=== PATIENT | male | born 1945 | race Caucasian/White ===

== ENCOUNTER 2018-10-26 13:44 | Inpatient (IN) | payer OTHER, MEDICARE, SELFPAY ==
[2018-10-26] VITALS (23 sets, daily range): BP systolic 67–154; BP diastolic 32–118; PULSE 100–128; RESP 18–26; TEMP 37.1–38.2; O2SAT 92–100; BMI 31.8; BMI 35.3
--- NOTE | 2018-10-26 13:55 | EKG12_ITS ---
Test Reason : LETHARGIC Blood Pressure : / mmHG Vent. Rate : 122 BPM Atrial Rate : 120 BPM P-R Int : 000 ms QRS Dur : 096 ms QT Int : 326 ms P-R-T Axes : 000 034 000 degrees QTc Int : 464 ms Atrial fibrillation with rapid ventricular response Nonspecific ST abnormality Abnormal ECG Confirmed by HANNA WHEAT, YOANNA ([id number]), brands editor CATRINA BRITO ([id number]) on 10/30/2018 10:46:05 AM Referred By: CHIDI Confirmed By:YOANNA FERREIRA MD
--- NOTE | 2018-10-26 13:55 | RAD_ITS ---
STUDY: X-RAY CHEST REASON FOR EXAM: Male, 73 years old. Cough. TECHNIQUE: Single AP portable view of the chest. COMPARISON: None. FINDINGS: EKG electrodes are seen. The lungs are clear and expanded. There is no demonstrated pleural abnormality. Normal size heart. There is widening of the paratracheal space laterally. Adenopathy should be ruled out. Normal visualized pulmonary arteries. There is atherosclerotic tortuosity of the aortic arch and descending thoracic aorta. There are diffuse degenerative changes of the visualized thoracic spine. There is degenerative osteoarthritis of the bilateral shoulders. There is no demonstrated abnormality of the visualized soft tissue structures of the upper abdomen. RAD/Chest 1 View (Portable) IMPRESSION: Widening of the superior mediastinum. Electronically Signed: Augusto Youngblood, at 15:00 EDT , Service support ,
[2018-10-26] MEDS: Acetaminophen 500 MG Tablet 1000 MG PO (14:29)
[2018-10-26 14:37] LABS: Absolute Lymphocyte Count 1.91 X10^3/ul (0.83-4.51); Absolute Neutrophil Count 4.3 X10^3/uL (2.0-7.7); Basophil# 0.03 X10^3/uL; Basophil% 0.4 % (0-1); Eosinophil# 0.01 X10^3/uL; Eosinophils% 0.1 % (0-5); Hematocrit 43.2 % (40-54); Hemoglobin 15.1 g/dl (13.0-16.5); Lymphocyte # 1.91 X10^3/ul (4.0); Lymphocyte % 27.8 % (19-41); Mean Corpuscular Hgb 30.7 pg (27.0-32.0); Mean Corpuscular Volume 87.8 fL (80-94); Mean Platelet Vol. 10.7 fl (6.2-12.0); Monocyte# 0.62 X10^3/uL; Neutrophil # 4.28 X10^3/uL (2.7-7.7); Neutrophil % 62.4 % (47-70); POSITIVE COUNT NO; POSITIVE DIFFERENTIAL NO; POSITIVE MORPHOLOGY NO; Platelet Count 199 K/mm3 (150-450); RBC Distribution Width CV 13.5 % (11.6-14.6); RBC Distribution Width SD 42.5 fl (35.1-43.9); Red Blood Count 4.92 M/mm3 (4.6-6.2); White Blood Count 6.9 K/mm3 (4.4-11.0)
[2018-10-26] MEDS: 0.9% Normal Saline 1,000 ML 999 ML IV ×4 (14:41→18:10)
--- NOTE | 2018-10-26 14:49 | NURSING ---
PER ADELA, CHEMISTRIES AND COAGS HEMOLIZED
[2018-10-26 15:11] LABS: Lactic Acid 1.9 mmol/L (0.4-2.0)
[2018-10-26 15:25] LABS: ALB/GLOB Ratio 1.1 RATIO (0.9-2.4); AST(SGOT) 76 U/L (15-37); Alanine Aminotransfer ALT/SGPT 27 U/L (16-61); Albumin, Serum 4.1 g/dL (3.2-5.0); Alkaline Phosphatase 65 U/L (45-117); Anion Gap 10 (5-15); BUN 32 mg/dL (7-18); Calcium,Total 8.2 mg/dL (8.5-10.1); Chloride 101 mmol/L (98-107); Creatinine, Serum 2.46 mg/dL (0.70-1.30); EST Glomerular Filtration Rate 28 mL/min (>60); Est Glom Filt Rate - Afr Amer 34 mL/min (>60); Estimated Creatinine Clearance 30.23 ml/min; Globulin 3.7 g/dL (2.2-4.2); Glucose 73 mg/dL (74-106); Potassium 4.8 mmol/L (3.5-5.1); Protein, Total 7.8 g/dL (6.4-8.2); Sodium Level 133 mmol/L (136-145)
[2018-10-26 15:42] LABS: Bacteria 0 SEEN /hpf (None Seen); Red Blood Cells-Urine 0 SEEN /hpf (0-5)
[2018-10-26 15:56] LABS: Color, Urine Yellow (Yellow); Glucose, Dipstick Normal (Normal); Ketone-Dipstick 5 mg/dl (Negative); Leukocyte Esterase-Dipstick 25 /ul (Negative); Nitrite-Dipstick Negative (Negative); Occult Blood-Urine 10 /ul (Negative); Protein-Dipstick 30 mg/dl (Negative); Specific Gravity, Urine 1.025 (1.002-1.030); Urine Clarity Clear (Clear); Urine Urobilinogen 1 mg/dl (Normal)
[2018-10-26 16:02] LABS: Urine Bilirubin Dipstick 1 mg/dL (Negative)
[2018-10-26 16:04] LABS: International Normalized Ratio 1.5; Prothrombin Time (Protime)PT. 17.7 SECONDS (11.7-14.9)
[2018-10-26 16:05] LABS: Partial Thromboplast Time 43.5 Seconds (24.1-36.2)
[2018-10-26] MEDS: Ondansetron 4 MG/2 ML Vial IV (16:05)
[2018-10-26 16:06] LABS: Amorphous Sediment 1+; Mucous, Urine 1+ /hpf (<or=2+); Squamous Epithelial Cells - UA 0-5 SEEN /hpf (0-5); White Blood Cells 0-5 SEEN /hpf (0-5)
--- NOTE | 2018-10-26 16:17 | NURSING ---
CALLED RICK FISHER. TALKED TO UGO. HE WILL GIVE MESSAGE TO A BED COORDINATOR.
--- NOTE | 2018-10-26 16:40 | ED.VISSUMM ---
- ER Visit Summary Date of Service: 10/26/18 Chief Complaint: Fever History of Present Illness: The patient is a 73 M who presents with a fever. He states it started yesterday. He states he feels weak all over. He admits to a cough. He did not get a flu shot this year. He denies any dysuria or abdominal pain. He states his only medical history is a brain tumor. However family states he is on multiple other medications at home. Physical Examination: Vital signs reviewed. HEENT exam unremarkable. Heart is irregularly irregular and tachycardic with no murmurs. Lungs are clear bilaterally. Abdomen soft and nontender. Extremities reveal a right AKA. His neurologic exam is normal. He answers all questions appropriately. Test Results: EKG is atrial fibrillation with a rate of 122. Nonspecific ST and T wave changes noted. White blood cell count normal. BUN 32, creatinine 2.46. Total bilirubin 2.10. Urinalysis has trace leukocytes but no WBCs. Lactate 1.9. Chest x-ray reveals a widened mediastinum but there are no infiltrates. Emergency Department Course and Treatment: Patient has new onset atrial fibrillation with acute kidney injury. He also has a temperature of 103 ?F. He was medicated with Tylenol and IV fluids. I held metoprolol because he did have a slightly low blood pressure, but his mean arterial pressure is above 65. I sent off a respiratory panel because his influenza was negative. We will hold antibiotics as this is likely viral. Patient will be admitted to the hospital for further evaluation. Treatment Plan: [] Disposition: Admit Impression: Sepsis, acute kidney injury, new onset atrial fibrillation This note was generated with [employer] dictation software. It may contain incorrect words, spelling, and punctuation that were not noted in review of the chart prior to signing ED Disposition - Plan for ED Patient: [facility] [Primary Care Provider] -
--- NOTE | 2018-10-26 16:42 | NURSING ---
ICU SEVERE SEPSIS, YUDI, NEW ONSET FRIDA DURÁN
--- NOTE | 2018-10-26 16:53 | PCM.HP.STD ---
<John Torres - Last Filed: 10/26/18 16:53> Problem List (1) Sepsis Status: Acute (2) Atrial fibrillation with RVR Status: Acute (3) Glucocorticoid deficiency Status: Acute (4) URI (upper respiratory infection) Status: Acute (5) YUDI (acute kidney injury) Status: Acute (6) HTN (hypertension) Status: Chronic (7) Hypothyroidism Status: Chronic History of Present Illness Date of Admission: 10/26/18 Chief Complaint: Cough The patient is a 73 year old M with pmhx of benign pituitary s/p gamma knife and on cabergoline, htn, hypothyroidism, on who presents to the ER with c/o worsening cough and other flulike symptoms. He was taking care of his sick grandson on Tuesday who was diagnosed with Croup and Strep pharyngitis, and his was also sick recently, and on tuesday he became ill. He denies fever or chills, tho he is running a fever here. He has a productive cough with copious mucus, he has sore throat when swallowing, and has become much weakner. He appears mildly confused and slow to respond in the ER. His BP is poor, after 2 liters at 82/64. He denies SOB. CXR does not show infiltrate. He does also complain of all over body ache and diarrhea. [] Past Medical History Past Medical History (Chronic Problems): Chronic Problems HTN (hypertension) (Chronic) Hypothyroidism (Chronic) Allergies No Known Allergies Allergy (Verified 09/17/13 14:19) Home Medications: Ambulatory Orders Medication Instructions Recorded Levothyroxine [Synthroid] 137 mcg PO DAILY 05/12/13 Cabergoline 0.5 mg PO MOWEFRSA 10/26/18 Calcium (Elemental) [Os-Mariano 500] 1 gm PO DAILY 10/26/18 Hydrocortisone 5 mg PO UD 10/26/18 Multivit-Min/FA/Lycopen/Lutein 1 tab PO DAILY 10/26/18 [Centrum Silver Men Tablet] Testosterone [Androgel] 2 pump TD DAILY 10/26/18 Surgical History: - - gamma knife Psychiatric History: No pertinent psych hx Lives: Spouse/ Significant Other Smoking Status: Former smoker Alcohol: None Drugs: None - *Family History Maternal History Items: Cancer - cervical Paternal History Items: No pertinent history Review of Systems Constitutional: Reports: Fever, Malaise, Weakness. Denies: Chills, Weight Change HEENT: Reports: Sore Throat. Denies: Head Aches, Sinus Congestion, Sinus Drainage Cardiovascular: Denies: Chest Pain, Palpitations Respiratory: Denies: Cough, Shortness of breath at rest, Sputum production Gastrointestinal: Denies: Abdominal Pain, Nausea, Vomiting Genitourinary: Denies: Dysuria Musculoskeletal: Denies: Joint Pain, Joint Tenderness Skin: Denies: Rash, Wounds Neurological: Denies: Numbness, Tingling, Focal weakness Psychiatric: Denies: Anxiety, Depression, Homicidal Ideations, Suicidal Ideations Hematologic/ Lymphatic: Denies: Easy Bruising, Easy Bleeding VTE Information - Inpt Only VTE Present on Admission: No VTE Mechan Device Prophylaxis: None VTE Pharm Prophylaxis ordered?: Yes Patient Problems: Active and Suspected Problems URI (upper respiratory infection) (Acute) Sepsis (Acute) Atrial fibrillation with RVR (Acute) YUDI (acute kidney injury) (Acute) Glucocorticoid deficiency (Acute) SIRS (systemic inflammatory response syndrome) (Acute) - Physical Exam General: Alert, Oriented x3, Cooperative, - - restless in bed HEENT: Atraumatic, PERRLA, EOMI, Normocephalic Neck: Supple, No JVD, Negative Carotid Bruits Lungs: Wheezes Cardiovascular: No murmurs, Irregular Rate, Tachycardic Abdomen: Bowel Sounds Present, Soft, Non Tender Extremities: No edema, Capillary Refill Less than 3 Seconds Skin: No rashes, No breakdown Musculoskeletal: No Tenderness to Palpation of Joints or Extremities, - - Right leg partial amputation Neurological: Cranial nerves II-XII grossly intact Psych/Mental Status: Normal Affect, Appropriate Vital Signs Temp Pulse Resp BP Pulse Ox 100.8 F H 117 H 22 H 98/67 98 10/26/18 16:02 10/26/18 16:30 10/26/18 16:30 10/26/18 16:30 10/26/18 16:30 Oxygen Flow Rate (L/min) 2 Oxygen Delivery Method Nasal Cannula Weight: 235 lb Body Mass Index (BMI) 31.8 Microbiology Past 72 Hours 10/26/18 14:15 Influenza Types A,B Direct FA (CRESENCIO) - Final Mucosa - Nasopharyngeal Laboratory Tests Past 24 Hrs 10/26/18 10/26/18 10/26/18 13:35 14:20 14:20 WBC 6.9 RBC 4.92 Hgb 15.1 Hct 43.2 MCV 87.8 MCH 30.7 MCHC 35.0 RDW 13.5 RDW Differential 42.5 Plt Count 199 MPV 10.7 Immature Gran % (Auto) 0.300 Neut % (Auto) 62.4 Lymph % (Auto) 27.8 Harlan % (Auto) 9.0 Eos % (Auto) 0.1 Baso % (Auto) 0.4 Absolute Neuts (auto) 4.3 Absolute Lymphs (auto) 1.91 Total Counted Not Reportable PT Cancelled INR Cancelled APTT Cancelled Sodium Potassium Chloride Carbon Dioxide Anion Gap BUN Creatinine Estim Creat Clear Calc Est GFR (MDRD) Af Amer Est GFR (MDRD) Non-Af BUN/Creatinine Ratio Glucose Lactic Acid Calcium Total Bilirubin AST ALT Alkaline Phosphatase Total Protein Albumin Globulin Albumin/Globulin Ratio Urine Color Yellow Urine Clarity Clear Urine pH 5.0 Ur Specific [place] 1.025 Urine Protein 30 H Urine Glucose (UA) Normal Urine Ketones 5 H Urine Occult Blood 10 H Urine Nitrite Negative Urine Bilirubin 1 H Urine Urobilinogen 1 H Ur Leukocyte Esterase 25 H Urine RBC 0 SEEN Urine WBC 0-5 SEEN Ur Squamous Epith Cells 0-5 SEEN Amorphous Sediment 1+ Urine Bacteria 0 SEEN Urine Mucus 1+ 10/26/18 10/26/18 10/26/18 14:20 14:20 15:00 WBC RBC Hgb Hct MCV MCH MCHC RDW RDW Differential Plt Count MPV Immature Gran % (Auto) Neut % (Auto) Lymph % (Auto) Harlan % (Auto) Eos % (Auto) Baso % (Auto) Absolute Neuts (auto) Absolute Lymphs (auto) Total Counted PT INR APTT Sodium Cancelled 133 L Potassium Cancelled 4.8 Chloride Cancelled 101 Carbon Dioxide Cancelled 22.0 Anion Gap Cancelled 10 BUN Cancelled 32 H Creatinine Cancelled 2.46 H Estim Creat Clear Calc Cancelled 30.23 Est GFR (MDRD) Af Amer Cancelled 34 L Est GFR (MDRD) Non-Af Cancelled 28 L BUN/Creatinine Ratio Cancelled 13.0 Glucose Cancelled 73 L Lactic Acid 1.9 Calcium Cancelled 8.2 L Total Bilirubin Cancelled 2.10 H AST Cancelled 76 H ALT Cancelled 27 Alkaline Phosphatase Cancelled 65 Total Protein Cancelled 7.8 Albumin Cancelled 4.1 Globulin Cancelled 3.7 Albumin/Globulin Ratio Cancelled 1.1 Urine Color Urine Clarity Urine pH Ur Specific [place] Urine Protein Urine Glucose (UA) Urine Ketones Urine Occult Blood Urine Nitrite Urine Bilirubin Urine Urobilinogen Ur Leukocyte Esterase Urine RBC Urine WBC Ur Squamous Epith Cells Amorphous Sediment Urine Bacteria Urine Mucus 10/26/18 15:40 WBC RBC Hgb Hct MCV MCH MCHC RDW RDW Differential Plt Count MPV Immature Gran % (Auto) Neut % (Auto) Lymph % (Auto) Harlan % (Auto) Eos % (Auto) Baso % (Auto) Absolute Neuts (auto) Absolute Lymphs (auto) Total Counted PT 17.7 H INR 1.5 APTT 43.5 H Sodium Potassium Chloride Carbon Dioxide Anion Gap BUN Creatinine Estim Creat Clear Calc Est GFR (MDRD) Af Amer Est GFR (MDRD) Non-Af BUN/Creatinine Ratio Glucose Lactic Acid Calcium Total Bilirubin AST ALT Alkaline Phosphatase Total Protein Albumin Globulin Albumin/Globulin Ratio Urine Color Urine Clarity Urine pH Ur Specific [place] Urine Protein Urine Glucose (UA) Urine Ketones Urine Occult Blood Urine Nitrite Urine Bilirubin Urine Urobilinogen Ur Leukocyte Esterase Urine RBC Urine WBC Ur Squamous Epith Cells Amorphous Sediment Urine Bacteria Urine Mucus Assessment/Plan All Active Problems URI (upper respiratory infection) (Acute) Sepsis (Acute) Atrial fibrillation with RVR (Acute) YUDI (acute kidney injury) (Acute) Glucocorticoid deficiency (Acute) SIRS (systemic inflammatory response syndrome) (Acute) Pituitary tumor (Acute) Headache (Acute) 1. SIRS, infectious source unclear, likely URI - symptoms include diarrhea, cough, sore throat, body aches, fever. Defer abx therapy. Supportive care for now. Received 2 units IV NaCl in ER. Flu screen neg. + sick grandson (croup, strep) and . No pharyngitis present on exam. Wide mediastinum on CXR - get CT chest. Possibly adrenal crisis. As per #4 stress dose steroids. 2. Afib RVR - start heparin, metoprolol. This is new onset. Echo in AM 3. YUDI - 2/2 sepsis - continue IV fluids. 4. Hypotension suspect 2/2 glucocorticoid deficiency from underlying illness and hx pituitary removal - stress dose hydrocortisone 5. Pituitary adenoma s/p gamma knife - at home on daily hydrocortisone and cabergoline 6. Hypothyroidism - continued synthroid DVT ppx: therapeutic heparin DC planning: PTOT, he appears somewhat confused in the ER and has progressive weakness at home This patient was seen by Jonh Torres PA-C under the supervision of Doctor Roverto. <Bertram Layne - Last Filed: 10/26/18 17:50> Problem List (1) SIRS (systemic inflammatory response syndrome) Status: Acute History of Present Illness Chief Complaint: cough The patient is a 73 year old M presents with cough. Symptoms began 2 days ago. Work up in the ED was unremarkable.[] Past Medical History Allergies No Known Allergies Allergy (Verified 09/17/13 14:19) Surgical History: - Psychiatric History: No pertinent psych hx Lives: Spouse/ Significant Other Smoking Status: Former smoker Alcohol: None Drugs: None - *Family History Maternal History Items: Cancer Paternal History Items: No pertinent history Review of Systems Constitutional: Reports: Fever, Malaise, Weakness. Denies: Chills, Weight Change HEENT: Reports: Sore Throat. Denies: Head Aches, Sinus Congestion, Sinus Drainage Cardiovascular: Denies: Chest Pain, Palpitations Respiratory: Denies: Cough, Shortness of breath at rest, Sputum production Gastrointestinal: Denies: Abdominal Pain, Nausea, Vomiting Genitourinary: Denies: Dysuria Musculoskeletal: Denies: Joint Pain, Joint Tenderness Skin: Denies: Rash, Wounds Neurological: Denies: Focal weakness, Numbness, Tingling Psychiatric: Denies: Anxiety, Depression, Homicidal Ideations, Suicidal Ideations Hematologic/ Lymphatic: Denies: Easy Bruising, Easy Bleeding VTE Information - Inpt Only VTE Present on Admission: No VTE Mechan Device Prophylaxis: None VTE Pharm Prophylaxis ordered?: Yes - Physical Exam General: Alert, Cooperative, - HEENT: Atraumatic, Normocephalic Oral: Moist Mucosa, No Gingival or Mucosal Lesions/ Ulcerations Neck: No Nodes, Thyroid Normal Size and Texture Lungs: Wheezes Cardiovascular: No murmurs, Irregular Rate, Tachycardic Abdomen: Bowel Sounds Present, Soft, Non Tender Extremities: No edema, No Calf Tenderness Skin: No breakdown, - Musculoskeletal: - Neurological: Cranial nerves II-XII grossly intact, - - no clonus. Psych/Mental Status: Normal Affect, Appropriate Vital Signs Temp Pulse Resp BP Pulse Ox 37.1 C 104 H 18 89/50 L 99 10/26/18 17:34 10/26/18 17:34 10/26/18 17:34 10/26/18 17:34 10/26/18 17:34 Oxygen Flow Rate (L/min) 2 Oxygen Delivery Method Nasal Cannula Weight: 106.594 kg Body Mass Index (BMI) 31.8 Microbiology Past 72 Hours 10/26/18 14:15 Influenza Types A,B Direct FA (CRESENCIO) - Final Mucosa - Nasopharyngeal Laboratory Tests Past 24 Hrs 10/26/18 10/26/18 10/26/18 13:35 14:20 14:20 WBC 6.9 RBC 4.92 Hgb 15.1 Hct 43.2 MCV 87.8 MCH 30.7 MCHC 35.0 RDW 13.5 RDW Differential 42.5 Plt Count 199 MPV 10.7 Immature Gran % (Auto) 0.300 Neut % (Auto) 62.4 Lymph % (Auto) 27.8 Harlan % (Auto) 9.0 Eos % (Auto) 0.1 Baso % (Auto) 0.4 Absolute Neuts (auto) 4.3 Absolute Lymphs (auto) 1.91 Total Counted Not Reportable PT Cancelled INR Cancelled APTT Cancelled Sodium Potassium Chloride Carbon Dioxide Anion Gap BUN Creatinine Estim Creat Clear Calc Est GFR (MDRD) Af Amer Est GFR (MDRD) Non-Af BUN/Creatinine Ratio Glucose Lactic Acid Calcium Total Bilirubin AST ALT Alkaline Phosphatase Total Protein Albumin Globulin Albumin/Globulin Ratio Urine Color Yellow Urine Clarity Clear Urine pH 5.0 Ur Specific [place] 1.025 Urine Protein 30 H Urine Glucose (UA) Normal Urine Ketones 5 H Urine Occult Blood 10 H Urine Nitrite Negative Urine Bilirubin 1 H Urine Urobilinogen 1 H Ur Leukocyte Esterase 25 H Urine RBC 0 SEEN Urine WBC 0-5 SEEN Ur Squamous Epith Cells 0-5 SEEN Amorphous Sediment 1+ Urine Bacteria 0 SEEN Urine Mucus 1+ 10/26/18 10/26/18 10/26/18 14:20 14:20 15:00 WBC RBC Hgb Hct MCV MCH MCHC RDW RDW Differential Plt Count MPV Immature Gran % (Auto) Neut % (Auto) Lymph % (Auto) Har[place] % (Auto) Eos % (Auto) Baso % (Auto) Absolute Neuts (auto) Absolute Lymphs (auto) Total Counted PT INR APTT Sodium Cancelled 133 L Potassium Cancelled 4.8 Chloride Cancelled 101 Carbon Dioxide Cancelled 22.0 Anion Gap Cancelled 10 BUN Cancelled 32 H Creatinine Cancelled 2.46 H Estim Creat Clear Calc Cancelled 30.23 Est GFR (MDRD) Af Amer Cancelled 34 L Est GFR (MDRD) Non-Af Cancelled 28 L BUN/Creatinine Ratio Cancelled 13.0 Glucose Cancelled 73 L Lactic Acid 1.9 Calcium Cancelled 8.2 L Total Bilirubin Cancelled 2.10 H AST Cancelled 76 H ALT Cancelled 27 Alkaline Phosphatase Cancelled 65 Total Protein Cancelled 7.8 Albumin Cancelled 4.1 Globulin Cancelled 3.7 Albumin/Globulin Ratio Cancelled 1.1 Urine Color Urine Clarity Urine pH Ur Specific [place] Urine Protein Urine Glucose (UA) Urine Ketones Urine Occult Blood Urine Nitrite Urine Bilirubin Urine Urobilinogen Ur Leukocyte Esterase Urine RBC Urine WBC Ur Squamous Epith Cells Amorphous Sediment Urine Bacteria Urine Mucus 10/26/18 15:40 WBC RBC Hgb Hct MCV MCH MCHC RDW RDW Differential Plt Count MPV Immature Gran % (Auto) Neut % (Auto) Lymph % (Auto) Harlan % (Auto) Eos % (Auto) Baso % (Auto) Absolute Neuts (auto) Absolute Lymphs (auto) Total Counted PT 17.7 H INR 1.5 APTT 43.5 H Sodium Potassium Chloride Carbon Dioxide Anion Gap BUN Creatinine Estim Creat Clear Calc Est GFR (MDRD) Af Amer Est GFR (MDRD) Non-Af BUN/Creatinine Ratio Glucose Lactic Acid Calcium Total Bilirubin AST ALT Alkaline Phosphatase Total Protein Albumin Globulin Albumin/Globulin Ratio Urine Color Urine Clarity Urine pH Ur Specific [place] Urine Protein Urine Glucose (UA) Urine Ketones Urine Occult Blood Urine Nitrite Urine Bilirubin Urine Urobilinogen Ur Leukocyte Esterase Urine RBC Urine WBC Ur Squamous Epith Cells Amorphous Sediment Urine Bacteria Urine Mucus Clinical Impression(s) from Imaging Studies Chest X-Ray 10/26/18 13:55 IMPRESSION: Widening of the superior mediastinum. Electronically Signed: Augusto Youngblood, at 15:00 EDT , Service support , Assessment/Plan Patient seen and examined independently. Data reviewed. I agree with the above note by the physician assistant commissioner. 1. SIRS: URI v adrenal crisis supportive mgmt follow up resp panel stress dose steroids. 2. YUDI suspect prerenal IVF reevaluate 3. Afib w RVR acute due to stress or chronic with RVR due to physiologic duress. 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 will likely need taper down to his physiologic dosing continue cabergoline and levothyroxine 5. VTE proph: anticoagulated. Code Visit Inpatient E&M: 62732 Init Hosp L3
--- NOTE | 2018-10-26 16:55 | NURSING ---
110 DR CAPONE IN ROOM
--- NOTE | 2018-10-26 16:57 | HP.PCM_ITS ---
<John Torres - Last Filed: 10/26/18 16:53> Problem List (1) Sepsis Status: Acute (2) Atrial fibrillation with RVR Status: Acute (3) Glucocorticoid deficiency Status: Acute (4) URI (upper respiratory infection) Status: Acute (5) YUDI (acute kidney injury) Status: Acute (6) HTN (hypertension) Status: Chronic (7) Hypothyroidism Status: Chronic History of Present Illness Date of Admission: 10/26/18 Chief Complaint: Cough The patient is a 73 year old M with pmhx of benign pituitary s/p gamma knife and on cabergoline, htn, hypothyroidism, on who presents to the ER with c/o wors ening cough and other flulike symptoms. He was taking care of his sick grandson on Tuesday who was diagnosed with Croup and Strep pharyngitis, and his was also sick recently, and on tuesday he became ill. He denies fever or chills, tho he is running a fever here. He has a productive cough with copious mucus, he has sore throat when swallowing, and has become much weakner. He appears mildly con fused and slow to respond in the ER. His BP is poor, after 2 liters at 82/64. He denies SOB. CXR does not show infiltrate. He does also complain of all over body ache and diarrhea. [] Past Medical History Past Medical History (Chronic Problems): Chronic Problems HTN (hypertension) (Chronic) Hypothyroidism (Chronic) Allergies No Known Allergies Allergy (Verified 09/17/13 14:19) Home Medications: Ambulatory Orders Medication Instructions Recorded Levothyroxine [Synthroid] 137 mcg PO DAILY 05/12/13 Cabergoline 0.5 mg PO MOWEFRSA 10/26/18 Calcium (Elemental) [Os-Mariano 500] 1 gm PO DAILY 10/26/18 Hydrocortisone 5 mg PO UD 10/26/18 Multivit-Min/FA/Lycopen/Lutein 1 tab PO DAILY 10/26/18 [Centrum Silver Men Tablet] Testosterone [Androgel] 2 pump TD DAILY 10/26/18 Surgical History: - - gamma knife Psychiatric History: No pertinent psych hx Lives: Spouse/ Significant Other Smoking Status: Former smoker Alcohol: None Drugs: None - *Family History Maternal History Items: Cancer - cervical Paternal History Items: No pertinent history Review of Systems Constitutional: Reports: Fever, Malaise, Weakness. Denies: Chills, Weight Change HEENT: Reports: Sore Throat. Denies: Head Aches, Sinus Congestion, Sinus Drainage Cardiovascular: Denies: Chest Pain, Palpitations Respiratory: Denies: Cough, Shortness of breath at rest, Sputum production Gastrointestinal: Denies: Abdominal Pain, Nausea, Vomiting Genitourinary: Denies: Dysuria Musculoskeletal: Denies: Joint Pain, Joint Tenderness Skin: Denies: Rash, Wounds Neurological: Denies: Numbness, Tingling, Focal weakness Psychiatric: Denies: Anxiety, Depression, Homicidal Ideations, Suicidal Ideations Hematologic/ Lymphatic: Denies: Easy Bruising, Easy Bleeding VTE Information - Inpt Only VTE Present on Admission: No VTE Mechan Device Prophylaxis: None VTE Pharm Prophylaxis ordered?: Yes Patient Problems: Active and Suspected Problems URI (upper respiratory infection) (Acute) Sepsis (Acute) Atrial fibrillation with RVR (Acute) YUDI (acute kidney injury) (Acute) Glucocorticoid deficiency (Acute) SIRS (systemic inflammatory response syndrome) (Acute) - Physical Exam General: Alert, Oriented x3, Cooperative, - - restless in bed HEENT: Atraumatic, PERRLA, EOMI, Normocephalic Neck: Supple, No JVD, Negative Carotid Bruits Lungs: Wheezes Cardiovascular: No murmurs, Irregular Rate, Tachycardic Abdomen: Bowel Sounds Present, Soft, Non Tender Extremities: No edema, Capillary Refill Less than 3 Seconds Skin: No rashes, No breakdown Musculoskeletal: No Tenderness to Palpation of Joints or Extremities, - - Right leg partial amputation Neurological: Cranial nerves II-XII grossly intact Psych/Mental Status: Normal Affect, Appropriate Vital Signs Temp Pulse Resp BP Pulse Ox 100.8 F H 117 H 22 H 98/67 98 10/26/18 16:02 10/26/18 16:30 10/26/18 16:30 10/26/18 16:30 10/26/18 16:30 Oxygen Flow Rate (L/min) 2 Oxygen Delivery Method Nasal Cannula Weight: 235 lb Body Mass Index (BMI) 31.8 Microbiology Past 72 Hours 10/26/18 14:15 Influenza Types A,B Direct FA (CRESENCIO) - Final Mucosa - Nasopharyngeal Laboratory Tests Past 24 Hrs 10/26/18 10/26/18 10/26/18 13:35 14:20 14:20 WBC 6.9 RBC 4.92 Hgb 15.1 Hct 43.2 MCV 87.8 MCH 30.7 MCHC 35.0 RDW 13.5 RDW Differential 42.5 Plt Count 199 MPV 10.7 Immature Gran % (Auto) 0.300 Neut % (Auto) 62.4 Lymph % (Auto) 27.8 Clayton % (Auto) 9.0 Eos % (Auto) 0.1 Baso % (Auto) 0.4 Absolute Neuts (auto) 4.3 Absolute Lymphs (auto) 1.91 Total Counted Not Reportable PT Cancelled INR Cancelled APTT Cancelled Sodium Potassium Chloride Carbon Dioxide Anion Gap BUN Creatinine Estim Creat Clear Calc Est GFR (MDRD) Af Amer Est GFR (MDRD) Non-Af BUN/Creatinine Ratio Glucose Lactic Acid Calcium Total Bilirubin AST ALT Alkaline Phosphatase Total Protein Albumin Globulin Albumin/Globulin Ratio Urine Color Yellow Urine Clarity Clear Urine pH 5.0 Ur Specific Fontanelle 1.025 Urine Protein 30 H Urine Glucose (UA) Normal Urine Ketones 5 H Urine Occult Blood 10 H Urine Nitrite Negative Urine Bilirubin 1 H Urine Urobilinogen 1 H Ur Leukocyte Esterase 25 H Urine RBC 0 SEEN Urine WBC 0-5 SEEN Ur Squamous Epith Cells 0-5 SEEN Amorphous Sediment 1+ Urine Bacteria 0 SEEN Urine Mucus 1+ 10/26/18 10/26/18 10/26/18 14:20 14:20 15:00 WBC RBC Hgb Hct MCV MCH MCHC RDW RDW Differential Plt Count MPV Immature Gran % (Auto) Neut % (Auto) Lymph % (Auto) Clayton % (Auto) Eos % (Auto) Baso % (Auto) Absolute Neuts (auto) Absolute Lymphs (auto) Total Counted PT INR APTT Sodium Cancelled 133 L Potassium Cancelled 4.8 Chloride Cancelled 101 Carbon Dioxide Cancelled 22.0 Anion Gap Cancelled 10 BUN Cancelled 32 H Creatinine Cancelled 2.46 H Estim Creat Clear Calc Cancelled 30.23 Est GFR (MDRD) Af Amer Cancelled 34 L Est GFR (MDRD) Non-Af Cancelled 28 L BUN/Creatinine Ratio Cancelled 13.0 Glucose Cancelled 73 L Lactic Acid 1.9 Calcium Cancelled 8.2 L Total Bilirubin Cancelled 2.10 H AST Cancelled 76 H ALT Cancelled 27 Alkaline Phosphatase Cancelled 65 Total Protein Cancelled 7.8 Albumin Cancelled 4.1 Globulin Cancelled 3.7 Albumin/Globulin Ratio Cancelled 1.1 Urine Color Urine Clarity Urine pH Ur Specific Fontanelle Urine Protein Urine Glucose (UA) Urine Ketones Urine Occult Blood Urine Nitrite Urine Bilirubin Urine Urobilinogen Ur Leukocyte Esterase Urine RBC Urine WBC Ur Squamous Epith Cells Amorphous Sediment Urine Bacteria Urine Mucus 10/26/18 15:40 WBC RBC Hgb Hct MCV MCH MCHC RDW RDW Differential Plt Count MPV Immature Gran % (Auto) Neut % (Auto) Lymph % (Auto) Clayton % (Auto) Eos % (Auto) Baso % (Auto) Absolute Neuts (auto) Absolute Lymphs (auto) Total Counted PT 17.7 H INR 1.5 APTT 43.5 H Sodium Potassium Chloride Carbon Dioxide Anion Gap BUN Creatinine Estim Creat Clear Calc Est GFR (MDRD) Af Amer Est GFR (MDRD) Non-Af BUN/Creatinine Ratio Glucose Lactic Acid Calcium Total Bilirubin AST ALT Alkaline Phosphatase Total Protein Albumin Globulin Albumin/Globulin Ratio Urine Color Urine Clarity Urine pH Ur Specific Fontanelle Urine Protein Urine Glucose (UA) Urine Ketones Urine Occult Blood Urine Nitrite Urine Bilirubin Urine Urobilinogen Ur Leukocyte Esterase Urine RBC Urine WBC Ur Squamous Epith Cells Amorphous Sediment Urine Bacteria Urine Mucus Assessment/Plan All Active Problems URI (upper respiratory infection) (Acute) Sepsis (Acute) Atrial fibrillation with RVR (Acute) YUDI (acute kidney injury) (Acute) Glucocorticoid deficiency (Acute) SIRS (systemic inflammatory response syndrome) (Acute) Pituitary tumor (Acute) Headache (Acute) 1. SIRS, infectious source unclear, likely URI - symptoms include diarrhea, cough, sore throat, body aches, fever. Defer abx therapy. Supportive care for now. Received 2 units IV NaCl in ER. Flu screen neg. + sick grandson (croup, strep) and . No pharyngitis present on exam. Wide mediastinum on CXR - get C T chest. Possibly adrenal crisis. As per #4 stress dose steroids. 2. Afib RVR - start heparin, metoprolol. This is new onset. Echo in AM 3. YUDI - 2/2 sepsis - continue IV fluids. 4. Hypotension suspect 2/2 glucocorticoid deficiency from underlying illness and hx pituitary removal - stress dose hydrocortisone 5. Pituitary adenoma s/p gamma knife - at home on daily hydrocortisone and cabergoline 6. Hypothyroidism - continued synthroid DVT ppx: therapeutic heparin DC planning: PTOT, he appears somewhat confused in the ER and has progressive weakness at home This patient was seen by John Torres PA-C under the supervision of Doctor Roverto. <Bertram Layne - Last Filed: 10/26/18 17:50> Problem List (1) SIRS (systemic inflammatory response syndrome) Status: Acute History of Present Illness Chief Complaint: cough The patient is a 73 year old M presents with cough. Symptoms began 2 days ago. Work up in the ED was unremarkable.[] Past Medical History Allergies No Known Allergies Allergy (Verified 09/17/13 14:19) Surgical History: - Psychiatric History: No pertinent psych hx Lives: Spouse/ Significant Other Smoking Status: Former smoker Alcohol: None Drugs: None - *Family History Maternal History Items: Cancer Paternal History Items: No pertinent history Review of Systems Constitutional: Reports: Fever, Malaise, Weakness. Denies: Chills, Weight Change HEENT: Reports: Sore Throat. Denies: Head Aches, Sinus Congestion, Sinus Drainage Cardiovascular: Denies: Chest Pain, Palpitations Respiratory: Denies: Cough, Shortness of breath at rest, Sputum production Gastrointestinal: Denies: Abdominal Pain, Nausea, Vomiting Genitourinary: Denies: Dysuria Musculoskeletal: Denies: Joint Pain, Joint Tenderness Skin: Denies: Rash, Wounds Neurological: Denies: Focal weakness, Numbness, Tingling Psychiatric: Denies: Anxiety, Depression, Homicidal Ideations, Suicidal Ideations Hematologic/ Lymphatic: Denies: Easy Bruising, Easy Bleeding VTE Information - Inpt Only VTE Present on Admission: No VTE Mechan Device Prophylaxis: None VTE Pharm Prophylaxis ordered?: Yes - Physical Exam General: Alert, Cooperative, - HEENT: Atraumatic, Normocephalic Oral: Moist Mucosa, No Gingival or Mucosal Lesions/ Ulcerations Neck: No Nodes, Thyroid Normal Size and Texture Lungs: Wheezes Cardiovascular: No murmurs, Irregular Rate, Tachycardic Abdomen: Bowel Sounds Present, Soft, Non Tender Extremities: No edema, No Calf Tenderness Skin: No breakdown, - Musculoskeletal: - Neurological: Cranial nerves II-XII grossly intact, - - no clonus. Psych/Mental Status: Normal Affect, Appropriate Vital Signs Temp Pulse Resp BP Pulse Ox 37.1 C 104 H 18 89/50 L 99 04/04/19 17:34 10/26/18 17:34 10/26/18 17:34 10/26/18 17:34 10/26/18 17:34 Oxygen Flow Rate (L/min) 2 Oxygen Delivery Method Nasal Cannula Weight: 106.594 kg Body Mass Index (BMI) 31.8 Microbiology Past 72 Hours 10/26/18 14:15 Influenza Types A,B Direct FA (CRESENCIO) - Final Mucosa - Nasopharyngeal Laboratory Tests Past 24 Hrs 10/26/18 10/26/18 10/26/18 13:35 14:20 14:20 WBC 6.9 RBC 4.92 Hgb 15.1 Hct 43.2 MCV 87.8 MCH 30.7 MCHC 35.0 RDW 13.5 RDW Differential 42.5 Plt Count 199 MPV 10.7 Immature Gran % (Auto) 0.300 Neut % (Auto) 62.4 Lymph % (Auto) 27.8 Clayton % (Auto) 9.0 Eos % (Auto) 0.1 Baso % (Auto) 0.4 Absolute Neuts (auto) 4.3 Absolute Lymphs (auto) 1.91 Total Counted Not Reportable PT Cancelled INR Cancelled APTT Cancelled Sodium Potassium Chloride Carbon Dioxide Anion Gap BUN Creatinine Estim Creat Clear Calc Est GFR (MDRD) Af Amer Est GFR (MDRD) Non-Af BUN/Creatinine Ratio Glucose Lactic Acid Calcium Total Bilirubin AST ALT Alkaline Phosphatase Total Protein Albumin Globulin Albumin/Globulin Ratio Urine Color Yellow Urine Clarity Clear Urine pH 5.0 Ur Specific Fontanelle 1.025 Urine Protein 30 H Urine Glucose (UA) Normal Urine Ketones 5 H Urine Occult Blood 10 H Urine Nitrite Negative Urine Bilirubin 1 H Urine Urobilinogen 1 H Ur Leukocyte Esterase 25 H Urine RBC 0 SEEN Urine WBC 0-5 SEEN Ur Squamous Epith Cells 0-5 SEEN Amorphous Sediment 1+ Urine Bacteria 0 SEEN Urine Mucus 1+ 10/26/18 10/26/18 10/26/18 14:20 14:20 15:00 WBC RBC Hgb Hct MCV MCH MCHC RDW RDW Differential Plt Count MPV Immature Gran % (Auto) Neut % (Auto) Lymph % (Auto) Clayton % (Auto) Eos % (Auto) Baso % (Auto) Absolute Neuts (auto) Absolute Lymphs (auto) Total Counted PT INR APTT Sodium Cancelled 133 L Potassium Cancelled 4.8 Chloride Cancelled 101 Carbon Dioxide Cancelled 22.0 Anion Gap Cancelled 10 BUN Cancelled 32 H Creatinine Cancelled 2.46 H Estim Creat Clear Calc Cancelled 30.23 Est GFR (MDRD) Af Amer Cancelled 34 L Est GFR (MDRD) Non-Af Cancelled 28 L BUN/Creatinine Ratio Cancelled 13.0 Glucose Cancelled 73 L Lactic Acid 1.9 Calcium Cancelled 8.2 L Total Bilirubin Cancelled 2.10 H AST Cancelled 76 H ALT Cancelled 27 Alkaline Phosphatase Cancelled 65 Total Protein Cancelled 7.8 Albumin Cancelled 4.1 Globulin Cancelled 3.7 Albumin/Globulin Ratio Cancelled 1.1 Urine Color Urine Clarity Urine pH Ur Specific Fontanelle Urine Protein Urine Glucose (UA) Urine Ketones Urine Occult Blood Urine Nitrite Urine Bilirubin Urine Urobilinogen Ur Leukocyte Esterase Urine RBC Urine WBC Ur Squamous Epith Cells Amorphous Sediment Urine Bacteria Urine Mucus 10/26/18 15:40 WBC RBC Hgb Hct MCV MCH MCHC RDW RDW Differential Plt Count MPV Immature Gran % (Auto) Neut % (Auto) Lymph % (Auto) Clayton % (Auto) Eos % (Auto) Baso % (Auto) Absolute Neuts (auto) Absolute Lymphs (auto) Total Counted PT 17.7 H INR 1.5 APTT 43.5 H Sodium Potassium Chloride Carbon Dioxide Anion Gap BUN Creatinine Estim Creat Clear Calc Est GFR (MDRD) Af Amer Est GFR (MDRD) Non-Af BUN/Creatinine Ratio Glucose Lactic Acid Calcium Total Bilirubin AST ALT Alkaline Phosphatase Total Protein Albumin Globulin Albumin/Globulin Ratio Urine Color Urine Clarity Urine pH Ur Specific Fontanelle Urine Protein Urine Glucose (UA) Urine Ketones Urine Occult Blood Urine Nitrite Urine Bilirubin Urine Urobilinogen Ur Leukocyte Esterase Urine RBC Urine WBC Ur Squamous Epith Cells Amorphous Sediment Urine Bacteria Urine Mucus Clinical Impression(s) from Imaging Studies Chest X-Ray 10/26/18 13:55 IMPRESSION: Widening of the superior mediastinum. Electronically Signed: Augusto Youngblood, at 15:00 EDT , Service support , Assessment/Plan Patient seen and examined independently. Data reviewed. I agree with the above note by the physician music library assistant. 1. SIRS: * URI v adrenal crisis * supportive mgmt * follow up resp panel * stress dose steroids. 2. YUDI * suspect prerenal * IVF * reevaluate 3. Afib w RVR * acute due to stress or chronic with RVR due to physiologic duress. 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 will likely need taper down to his physiologic dosing * continue cabergoline and levothyroxine 5. VTE proph: anticoagulated. Code Visit Inpatient E&M: 91264 Init Hosp L3
--- NOTE | 2018-10-26 17:12 | CT_ITS ---
STUDY: CT CHEST WITHOUT CONTRAST REASON FOR EXAM: Male, 73 years old. Productive cough RADIATION DOSAGE (If Supplied By Facility): CTDIvol = ( 20.15 ) mGy, DLP = ( 790.49 ) mGycm TECHNIQUE: Transaxial imaging was performed without the administration of intravenous contrast material. Individualized dose optimization techniques were used for this CT. COMPARISON: None. FINDINGS: The lungs are expanded. Focal right upper lobe infiltrate/atelectasis. Normal heart and pericardium. Adenopathy in the mediastinum. Normal hilar regions. Normal unenhanced pulmonary arteries. Prominent ascending aorta measuring 4.8 cm in diameter. Degenerative vertebral changes. Cholelithiasis. CT/Chest without Contrast IMPRESSION: Focal right upper lobe infiltrate/atelectasis. Mediastinal adenopathy. Dilated ascending aorta. Cholelithiasis. Electronically Signed: Rk Cárdenas DO at 21:55 EDT Tel [phone], Service support ,
--- NOTE | 2018-10-26 17:27 | ECHOCS_ITS ---
Reason For Study: AFIB Procedure This was a 2D Doppler, Color Flow transthoracic echocardiogram. Contrast injection was performed. The study was technically difficult. Exam performed portable in patient room. Left Ventricle Normal LV size. Left ventricular systolic function is normal. The estimated ejection fraction is 65 %. Unable to assess diastolic dysfunction due to arrhythmia. No regional wall motion abnormalities noted. Right Ventricle Mildly dilated right ventricle. Mild global right ventricular systolic dysfunction. Atria The left atrium is moderately enlarged. The right atrium is moderately enlarged. Mitral Valve Mitral valve not well visualized. Tricuspid Valve The tricuspid valve is not well visualized. Mild (1+) tricuspid valve insufficiency. Pulmonary artery systolic pressure is 33 mmHg. Aortic Valve The aortic valve is not well visualized. Mild (1+) eccentric aortic valve insufficiency. Pulmonic Valve The pulmonic valve is not well visualized. Great Vessels Mildly dilated aortic root. The pulmonary artery is normal size. Normal inferior vena cava. Pericardium/Pleural No pericardial effusion. Medication Diluted definity 3ml given slow IV push to enhance endocardial definition. MMode/2D Measurements & Calculations LVIDd: 4.4 cm IVSd: 0.73 cm LAV(MOD-bp): 106.2 ml LVIDs: 2.9 cm LVPWd: 1.1 cm RVDd: 4.6 cm FS: 33.4 % LAV(MOD-bp) Indexed: 44.6 ml/m2 LAV(MOD-sp2): 125.2 ml LAV(MOD-sp4): 93.0 ml SV(MOD-sp4): 73.3 ml SV(sp4-el): 79.2 ml LVAd ap4: 32.1 cm2 EDV(MOD-sp4): 101.7 ml EDV(sp4-el): 108.9 ml LVAs ap4: 14.6 cm2 ESV(MOD-sp4): 28.4 ml ESV(sp4-el): 29.6 ml EF(MOD-sp4): 72.1 % EF(sp4-el): 72.8 % LA dimension(2D): 4.9 cm LA A4 area: 29.9 cm2 RA A4 area: 28.6 cm2 Doppler Measurements & Calculations Ao V2 max: 112.6 cm/sec AI max flora: 384.8 cm/sec LV V1 max: 87.7 cm/sec Ao max P.1 mmHg AI max P.2 mmHg LV V1 max P.1 mmHg AI dec slope: 216.2 cm/sec2 AI P1/2t: 521.2 msec TR max flora: 258.9 cm/sec TR max P.0 mmHg Interpretation Summary Normal LV size. Left ventricular systolic function is normal. The estimated ejection fraction is 65 %. Unable to assess diastolic dysfunction due to arrhythmia. Contrast injection was performed. Ordering Physician: Bertram Layne Referring Physician: [facility] Performed By: Elis Whitehead, NOAH, RVT
[2018-10-26] MEDS: Hydrocortisone Sod Succinate 100 MG/2 ML Vial IV ×2 (18:06→23:53)
[2018-10-26] MEDS: 0.9% Normal Saline 1,000 ML 150 ML IV (19:07)
[2018-10-26] MEDS: HEPARIN/D5w 25,000 UNITS 25,000 UNITS/250 ML IV.SOLN. 16 UNITS IV (19:50)
[2018-10-27] VITALS (19 sets, daily range): BP systolic 102–146; BP diastolic 58–96; PULSE 77–104; RESP 11–21; TEMP 36.6–36.8; O2SAT 95–100
[2018-10-27] MEDS: Acetaminophen 325 MG Tablet 650 MG PO (02:04)
[2018-10-27 03:08] LABS: Partial Thromboplast Time 198.3 Seconds (24.1-36.2)
[2018-10-27 04:20] LABS: AST(SGOT) 74 U/L (15-37); Alanine Aminotransfer ALT/SGPT 28 U/L (16-61); Albumin, Serum 3.7 g/dL (3.2-5.0); Alkaline Phosphatase 57 U/L (45-117); Anion Gap 12 (5-15); BUN 26 mg/dL (7-18); Calcium,Total 7.5 mg/dL (8.5-10.1); Chloride 110 mmol/L (98-107); Estimated Creatinine Clearance 46.48 ml/min; Globulin 2.9 g/dL (2.2-4.2); Glucose 113 mg/dL (74-106); Potassium 4.6 mmol/L (3.5-5.1); Protein, Total 6.6 g/dL (6.4-8.2); Sodium Level 141 mmol/L (136-145)
[2018-10-27 04:21] LABS: Thyroid Stim Hormone (TSH) 0.04 uIU/mL (0.358-3.74)
[2018-10-27] MEDS: Hydrocortisone Sod Succinate 100 MG/2 ML Vial IV ×4 (05:08→23:47)
[2018-10-27] MEDS: Levothyroxine 137 MCG Tablet PO (05:17)
[2018-10-27 05:37] LABS: Absolute Lymphocyte Count 0.43 X10^3/ul (0.83-4.51); Absolute Neutrophil Count 2.9 X10^3/uL (2.0-7.7); Hematocrit 34.9 % (40-54); Hemoglobin 12.3 g/dl (13.0-16.5); Lymphocyte # 0.43 X10^3/ul (4.0); Lymphocyte % 12.8 % (19-41); Mean Corp Hgb Conc 35.2 g/gl (32-36); Mean Corpuscular Hgb 31.4 pg (27.0-32.0); Mean Platelet Vol. 10.6 fl (6.2-12.0); Monocyte# 0.06 X10^3/uL; Monocyte% 1.8 % (0-10); Neutrophil # 2.87 X10^3/uL (2.7-7.7); Neutrophil % 85.4 % (47-70); Platelet Count 134 K/mm3 (150-450); RBC Distribution Width CV 13.4 % (11.6-14.6); RBC Distribution Width SD 43.6 fl (35.1-43.9); Red Blood Count 3.92 M/mm3 (4.6-6.2); White Blood Count 3.4 K/mm3 (4.4-11.0)
[2018-10-27 05:43] LABS: Differential Indicated SCAN CRITERIA MET; POSITIVE COUNT NO; POSITIVE DIFFERENTIAL YES; POSITIVE MORPHOLOGY NO
[2018-10-27 05:53] LABS: Differential Comment SCANNED
[2018-10-27] MEDS: Multivitamins,Ther W-Minerals Tablet 1 TABLET PO (07:43)
[2018-10-27] MEDS: Calcium (Elemental) 500 MG Tablet 1000 MG PO (07:43)
[2018-10-27 09:25] LABS: Partial Thromboplast Time 105.7 Seconds (24.1-36.2)
[2018-10-27] MEDS: guaiFENesin 1,200 MG Tablet 1200 MG PO ×2 (09:26→21:59)
[2018-10-27] MEDS: Ceftriaxone 1 GM/50 ML BAG IV (09:26)
--- NOTE | 2018-10-27 09:45 | CASEMGMT ---
Clinicals faxed to [facility] at this time. Dilshad CLINTON CM
[2018-10-27 09:46] LABS: T4 Free Direct 1.49 ng/dL (0.76-1.46)
[2018-10-27] MEDS: CABERGOLINE 0.5 MG TABLET PO (09:55)
[2018-10-27] MEDS: Metoprolol Tartrate 25 MG Tablet 12.5 MG PO ×2 (09:56→21:59)
--- NOTE | 2018-10-27 10:40 | CASEMGMT ---
OZ DONG SUPERVISOR FRONT CM to room to meet with patient for initial transition planning/care coordination assessment. OZ DONG introduced self and role at [facility]. Pt voices understanding and consents to assessment at this time. Pt resting in bed in no distress at this time. Pt is A/O at this time and answers all questions appropriately. Care providers, pharmacy, and demographics verified/updated at this time. PCP: [facility]. Call placed to [facility] and message left stating pt admitted to [facility]. Pt is on PACT team # [address] Figueroa. Clinicals faxed to [facility]. Message also left stating pt will be going home on Eliquis and that pt will be given 30-day savings card and that pt has been instructed to follow-up with them after he is discharged from [facility] . Preferred Pharmacy: [facility], but states if he needs to order picker/assembler prescriptions over the weekend, that he can get them @ [facility] [place]. Pt made aware if meds on d/c are too expensive when he goes to pick them up, that he can just pay for a partial fill to get him through until he can get in for an appt @ the [facility]. Pt voices understanding. Insurance: [facility], [employer] benefits. Prescription Benefit: [facility] Living Will/HPOA: Pt states he thinks he has both LW and HCPOA, who is his , Kassandra, but he is not sure. Informed pt if he determines that he has not completed these, that he can have done as an out-pt. Given student services vice president rac card. He voices understanding. LNOK: Living Arrangements: Lives with his in one-story home. 2 steps to enter. Able to navigate well. Pt independent with personal ADL's and manages his own medications and appts. 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 Transportation: Pt states drives self and states no transportation concerns at this time. can drive on d/c. DME: States has the following DME: shower chair, uses cane on occasion, lift chair, grab bars in shower, hand held shower, walker, prosthetic leg. Denies having home O2, BIPAP/CPAP, or nebulizer. Pt states no need for further DME at this time. HHC/SNF: No history of either and pt denies needs. No needs identified. Pt wishes to return home and states has no concerns with going home at time of discharge. Pt states does not smoke or drink ETOH. CM to follow for any discharge planning/needs. Pt voices no further concerns/needs at this time. Advised pt to ask for CM if any further questions/concerns/needs arise. Voices understanding. PLAN: Home Discussed [facility] transfer form with pt. Pt states he does not want to transfer to [facility] and declination form signed. Form faxed to [facility]. Clint SMILEY RN CM
--- NOTE | 2018-10-27 11:46 | CPS ---
Pep and SMI placed in room at bedside. P.T and O.T with pt. will instruct pt later on use
--- NOTE | 2018-10-27 11:56 | CASEMGMT ---
Pt provided with [facility] [employer] 30 day free trial card with instructions at this time. Pt is aware that he will need to f/u at [facility] to get a new script for next month and voices understanding. Pt with family member at bedside and she voices understanding as well. Pt voices no further questions/concerns/needs at this time. Dilshad CLINTON CM
--- NOTE | 2018-10-27 12:54 | PN_ITS ---
Addendum entered and electronically signed by ASHER Dixon 10/27/18 14:45: Code Visit heparin changed to eliquis resp panel flu A +, start renal dosed tamiflu Original Note: <John Torres - Last Filed: 10/27/18 14:45> Patient Problems: Active and Suspected Problems URI (upper respiratory infection) (Acute) Sepsis (Acute) Atrial fibrillation with RVR (Acute) YUDI (acute kidney injury) (Acute) Glucocorticoid deficiency (Acute) SIRS (systemic inflammatory response syndrome) (Acute) Subjective: productive cough continues - mucus. Still c/o weakness, nausea. No further fever. No chills. No CP. He is off O2, no SOB, 100% RA. - Physical Exam General: Alert, Oriented x3, Cooperative HEENT: Atraumatic, PERRLA, EOMI, Normocephalic Neck: Supple, No JVD, Negative Carotid Bruits Lungs: Normal air movement, Rales Cardiovascular: Regular rate, No murmurs Abdomen: Bowel Sounds Present, Soft, Non Tender Extremities: No edema, Capillary Refill Less than 3 Seconds Skin: No rashes, No breakdown Musculoskeletal: No Tenderness to Palpation of Joints or Extremities Neurological: Cranial nerves II-XII grossly intact Psych/Mental Status: Normal Affect, Appropriate, Alert and oriented to time, place, person, mood and affect Vital Signs Temp Pulse Resp BP Pulse Ox 98.1 F 80 20 H 115/90 H 100 10/27/18 09:00 10/27/18 11:03 10/27/18 09:00 10/27/18 09:00 10/27/18 09:00 Oxygen Flow Rate (L/min) 2 Oxygen Delivery Method Room Air Weight: 260 lb 2.327 oz Body Mass Index (BMI) 3.2 Intake and Output for Last 24 Hours 10/25/18 10/26/18 10/27/18 23:59 23:59 23:59 Intake Total 4023.3 / 4023.3 Output Total 1550 / 1550 Balance 2473.3 / 2473.3 Microbiology Past 72 Hours 10/26/18 13:35 Urine Culture - Preliminary Urine, Clean Catch Culture exhibits no growth. 10/27/18 09:00 Streptococcus pneumoniae Antigen (M - Final Urine, Clean Catch 10/27/18 09:00 Legionella Antigen - Final Urine, Clean Catch 10/26/18 14:15 Influenza Types A,B Direct FA (CRESENCIO) - Final Mucosa - Nasopharyngeal Laboratory Tests Past 24 Hrs 10/26/18 10/26/18 10/26/18 13:35 14:20 14:20 WBC 6.9 RBC 4.92 Hgb 15.1 Hct 43.2 MCV 87.8 MCH 30.7 MCHC 35.0 RDW 13.5 RDW Differential 42.5 Plt Count 199 MPV 10.7 Immature Gran % (Auto) 0.300 Neut % (Auto) 62.4 Lymph % (Auto) 27.8 [place] % (Auto) 9.0 Eos % (Auto) 0.1 Baso % (Auto) 0.4 Absolute Neuts (auto) 4.3 Absolute Lymphs (auto) 1.91 Total Counted Not Reportable Differential Comment PT Cancelled INR Cancelled APTT Cancelled Sodium Potassium Chloride Carbon Dioxide Anion Gap BUN Creatinine Estim Creat Clear Calc Est GFR (MDRD) Af Amer Est GFR (MDRD) Non-Af BUN/Creatinine Ratio Glucose Lactic Acid Calcium Magnesium Total Bilirubin Direct Bilirubin AST ALT Alkaline Phosphatase Troponin I Total Protein Albumin Globulin Albumin/Globulin Ratio TSH Free T4 Urine Color Yellow Urine Clarity Clear Urine pH 5.0 Ur Specific [place] 1.025 Urine Protein 30 H Urine Glucose (UA) Normal Urine Ketones 5 H Urine Occult Blood 10 H Urine Nitrite Negative Urine Bilirubin 1 H Urine Urobilinogen 1 H Ur Leukocyte Esterase 25 H Urine RBC 0 SEEN Urine WBC 0-5 SEEN Ur Squamous Epith Cells 0-5 SEEN Amorphous Sediment 1+ Urine Bacteria 0 SEEN Urine Mucus 1+ 10/26/18 10/26/18 10/26/18 14:20 14:20 15:00 WBC RBC Hgb Hct MCV MCH MCHC RDW RDW Differential Plt Count MPV Immature Gran % (Auto) Neut % (Auto) Lymph % (Auto) [place] % (Auto) Eos % (Auto) Baso % (Auto) Absolute Neuts (auto) Absolute Lymphs (auto) Total Counted Differential Comment PT INR APTT Sodium Cancelled 133 L Potassium Cancelled 4.8 Chloride Cancelled 101 Carbon Dioxide Cancelled 22.0 Anion Gap Cancelled 10 BUN Cancelled 32 H Creatinine Cancelled 2.46 H Estim Creat Clear Calc Cancelled 30.23 Est GFR (MDRD) Af Amer Cancelled 34 L Est GFR (MDRD) Non-Af Cancelled 28 L BUN/Creatinine Ratio Cancelled 13.0 Glucose Cancelled 73 L Lactic Acid 1.9 Calcium Cancelled 8.2 L Magnesium Total Bilirubin Cancelled 2.10 H Direct Bilirubin AST Cancelled 76 H ALT Cancelled 27 Alkaline Phosphatase Cancelled 65 Troponin I Total Protein Cancelled 7.8 Albumin Cancelled 4.1 Globulin Cancelled 3.7 Albumin/Globulin Ratio Cancelled 1.1 TSH Free T4 Urine Color Urine Clarity Urine pH Ur Specific [place] Urine Protein Urine Glucose (UA) Urine Ketones Urine Occult Blood Urine Nitrite Urine Bilirubin Urine Urobilinogen Ur Leukocyte Esterase Urine RBC Urine WBC Ur Squamous Epith Cells Amorphous Sediment Urine Bacteria Urine Mucus 10/26/18 10/26/18 10/26/18 15:40 18:10 21:45 WBC RBC Hgb Hct MCV MCH MCHC RDW RDW Differential Plt Count MPV Immature Gran % (Auto) Neut % (Auto) Lymph % (Auto) [place] % (Auto) Eos % (Auto) Baso % (Auto) Absolute Neuts (auto) Absolute Lymphs (auto) Total Counted Differential Comment PT 17.7 H INR 1.5 APTT 43.5 H Sodium Potassium Chloride Carbon Dioxide Anion Gap BUN Creatinine Estim Creat Clear Calc Est GFR (MDRD) Af Amer Est GFR (MDRD) Non-Af BUN/Creatinine Ratio Glucose Lactic Acid Calcium Magnesium Total Bilirubin Direct Bilirubin AST ALT Alkaline Phosphatase Troponin I 0.046 H 0.034 Total Protein Albumin Globulin Albumin/Globulin Ratio TSH Free T4 Urine Color Urine Clarity Urine pH Ur Specific [place] Urine Protein Urine Glucose (UA) Urine Ketones Urine Occult Blood Urine Nitrite Urine Bilirubin Urine Urobilinogen Ur Leukocyte Esterase Urine RBC Urine WBC Ur Squamous Epith Cells Amorphous Sediment Urine Bacteria Urine Mucus 10/27/18 10/27/18 10/27/18 00:42 00:42 02:35 WBC RBC Hgb Hct MCV MCH MCHC RDW RDW Differential Plt Count MPV Immature Gran % (Auto) Neut % (Auto) Lymph % (Auto) [place] % (Auto) Eos % (Auto) Baso % (Auto) Absolute Neuts (auto) Absolute Lymphs (auto) Total Counted Differential Comment PT INR APTT Sodium 141 Potassium 4.6 Chloride 110 H Carbon Dioxide 19.0 L Anion Gap 12 BUN 26 H Creatinine 1.60 H Estim Creat Clear Calc 46.48 Est GFR (MDRD) Af Amer 56 L Est GFR (MDRD) Non-Af 46 L BUN/Creatinine Ratio 16.3 Glucose 113 H Lactic Acid Calcium 7.5 L Magnesium 2.0 Total Bilirubin 1.40 H Direct Bilirubin 0.50 H AST 74 H ALT 28 Alkaline Phosphatase 57 Troponin I 0.023 Total Protein 6.6 Albumin 3.7 Globulin 2.9 Albumin/Globulin Ratio TSH 0.04 L Free T4 1.49 H Urine Color Urine Clarity Urine pH Ur Specific [place] Urine Protein Urine Glucose (UA) Urine Ketones Urine Occult Blood Urine Nitrite Urine Bilirubin Urine Urobilinogen Ur Leukocyte Esterase Urine RBC Urine WBC Ur Squamous Epith Cells Amorphous Sediment Urine Bacteria Urine Mucus 10/27/18 10/27/18 10/27/18 02:35 04:54 08:58 WBC 3.4 L RBC 3.92 L Hgb 12.3 L Hct 34.9 L MCV 89.0 MCH 31.4 MCHC 35.2 RDW 13.4 RDW Differential 43.6 Plt Count 134 L MPV 10.6 Immature Gran % (Auto) 0.000 Neut % (Auto) 85.4 H Lymph % (Auto) 12.8 L [place] % (Auto) 1.8 Eos % (Auto) 0.0 Baso % (Auto) 0.0 Absolute Neuts (auto) 2.9 Absolute Lymphs (auto) 0.43 L Total Counted Not Reportable Differential Comment SCANNED PT INR APTT 198.3 H* 105.7 H* Sodium Potassium Chloride Carbon Dioxide Anion Gap BUN Creatinine Estim Creat Clear Calc Est GFR (MDRD) Af Amer Est GFR (MDRD) Non-Af BUN/Creatinine Ratio Glucose Lactic Acid Calcium Magnesium Total Bilirubin Direct Bilirubin AST ALT Alkaline Phosphatase Troponin I Total Protein Albumin Globulin Albumin/Globulin Ratio TSH Free T4 Urine Color Urine Clarity Urine pH Ur Specific [place] Urine Protein Urine Glucose (UA) Urine Ketones Urine Occult Blood Urine Nitrite Urine Bilirubin Urine Urobilinogen Ur Leukocyte Esterase Urine RBC Urine WBC Ur Squamous Epith Cells Amorphous Sediment Urine Bacteria Urine Mucus Medical Necessity - Tobacco Use Smoking Status: Former smoker Tobacco Use: Non-smoker Assessment/Plan All Active Problems URI (upper respiratory infection) (Acute) Sepsis (Acute) Atrial fibrillation with RVR (Acute) YUDI (acute kidney injury) (Acute) Glucocorticoid deficiency (Acute) SIRS (systemic inflammatory response syndrome) (Acute) Pituitary tumor (Acute) Headache (Acute) 1. Acute sepsis 2/2 RUL community acquired pna - RUL infiltrate, mediastinal adenopathy on CT. Continue rocephin and azithro, strep and legionella urine ag are negative. resp panel is pending. Flu screen neg. Blood cultures pending. 2. Adrenal crisis - precipitated by above - bp has stabilized with IV hydrocortisone. TSH is low but this is expected with no pituitary (s/p gamma knife) T4 is slightly high, hyponatremia has resolved. 3. Afib RVR - improved with metoprolol. New onset, likely from sepsis. Continue metoprolol. No amio for now. BP stable. Chadvasc score 2 (age, hx htn) - check eliquis rx. Continue heparin for now. Slight troponin bump initially now resolved. 4. YUDI - 2/2 sepsis - Improved. 5. HTN - pt took himself off of all his home BP meds several years prior because he felt that they were making him fatigued. 6. Pituitary adenoma s/p gamma knife - at home on daily hydrocortisone and cabergoline 7. Hypothyroidism - continued synthroid, thyroid studies as above. DVT ppx: therapeutic heparin DC planning: PTOT, weakness. This patient was seen by John Torres PA-C under the supervision of Doctor Sepideh <Vero Bunn - Last Filed: 10/27/18 16:03> - Physical Exam Vital Signs Temp Pulse Resp BP Pulse Ox 98.3 F 82 14 144/70 H 96 10/27/18 15:10 10/27/18 15:10 10/27/18 15:10 10/27/18 15:10 10/27/18 15:10 Oxygen Flow Rate (L/min) 2 Oxygen Delivery Method Room Air Weight: 260 lb 2.327 oz Body Mass Index (BMI) 3.2 Intake and Output for Last 24 Hours 10/25/18 10/26/18 10/27/18 23:59 23:59 23:59 Intake Total 4023.3 / 4023.3 Output Total 1550 / 1550 Balance 2473.3 / 2473.3 Microbiology Past 72 Hours 10/26/18 14:15 Respiratory Panel (PCR) - Final Mucosa - Nasopharyngeal Influenza A (Subtype H1) 10/26/18 13:35 Urine Culture - Preliminary Urine, Clean Catch Culture exhibits no growth. 10/27/18 09:00 Streptococcus pneumoniae Antigen (M - Final Urine, Clean Catch 10/27/18 09:00 Legionella Antigen - Final Urine, Clean Catch 10/26/18 14:15 Influenza Types A,B Direct FA (CRESENCIO) - Final Mucosa - Nasopharyngeal Laboratory Tests Past 24 Hrs 10/26/18 10/26/18 10/26/18 13:35 15:40 18:10 WBC RBC Hgb Hct MCV MCH MCHC RDW RDW Differential Plt Count MPV Immature Gran % (Auto) Neut % (Auto) Lymph % (Auto) [place] % (Auto) Eos % (Auto) Baso % (Auto) Absolute Neuts (auto) Absolute Lymphs (auto) Total Counted Differential Comment PT 17.7 H INR 1.5 APTT 43.5 H Sodium Potassium Chloride Carbon Dioxide Anion Gap BUN Creatinine Estim Creat Clear Calc Est GFR (MDRD) Af Amer Est GFR (MDRD) Non-Af BUN/Creatinine Ratio Glucose Calcium Magnesium Total Bilirubin Direct Bilirubin AST ALT Alkaline Phosphatase Troponin I 0.046 H Total Protein Albumin Globulin TSH Free T4 Urine Color Yellow Urine Clarity Clear Urine pH 5.0 Ur Specific [place] 1.025 Urine Protein 30 H Urine Glucose (UA) Normal Urine Ketones 5 H Urine Occult Blood 10 H Urine Nitrite Negative Urine Bilirubin 1 H Urine Urobilinogen 1 H Ur Leukocyte Esterase 25 H Urine RBC 0 SEEN Urine WBC 0-5 SEEN Ur Squamous Epith Cells 0-5 SEEN Amorphous Sediment 1+ Urine Bacteria 0 SEEN Urine Mucus 1+ 10/26/18 10/27/18 10/27/18 21:45 00:42 00:42 WBC RBC Hgb Hct MCV MCH MCHC RDW RDW Differential Plt Count MPV Immature Gran % (Auto) Neut % (Auto) Lymph % (Auto) [place] % (Auto) Eos % (Auto) Baso % (Auto) Absolute Neuts (auto) Absolute Lymphs (auto) Total Counted Differential Comment PT INR APTT Sodium Potassium Chloride Carbon Dioxide Anion Gap BUN Creatinine Estim Creat Clear Calc Est GFR (MDRD) Af Amer Est GFR (MDRD) Non-Af BUN/Creatinine Ratio Glucose Calcium Magnesium 2.0 Total Bilirubin Direct Bilirubin AST ALT Alkaline Phosphatase Troponin I 0.034 0.023 Total Protein Albumin Globulin TSH Free T4 1.49 H Urine Color Urine Clarity Urine pH Ur Specific [place] Urine Protein Urine Glucose (UA) Urine Ketones Urine Occult Blood Urine Nitrite Urine Bilirubin Urine Urobilinogen Ur Leukocyte Esterase Urine RBC Urine WBC Ur Squamous Epith Cells Amorphous Sediment Urine Bacteria Urine Mucus 10/27/18 10/27/18 10/27/18 02:35 02:35 04:54 WBC 3.4 L RBC 3.92 L Hgb 12.3 L Hct 34.9 L MCV 89.0 MCH 31.4 MCHC 35.2 RDW 13.4 RDW Differential 43.6 Plt Count 134 L MPV 10.6 Immature Gran % (Auto) 0.000 Neut % (Auto) 85.4 H Lymph % (Auto) 12.8 L [place] % (Auto) 1.8 Eos % (Auto) 0.0 Baso % (Auto) 0.0 Absolute Neuts (auto) 2.9 Absolute Lymphs (auto) 0.43 L Total Counted Not Reportable Differential Comment SCANNED PT INR APTT 198.3 H* Sodium 141 Potassium 4.6 Chloride 110 H Carbon Dioxide 19.0 L Anion Gap 12 BUN 26 H Creatinine 1.60 H Estim Creat Clear Calc 46.48 Est GFR (MDRD) Af Amer 56 L Est GFR (MDRD) Non-Af 46 L BUN/Creatinine Ratio 16.3 Glucose 113 H Calcium 7.5 L Magnesium Total Bilirubin 1.40 H Direct Bilirubin 0.50 H AST 74 H ALT 28 Alkaline Phosphatase 57 Troponin I Total Protein 6.6 Albumin 3.7 Globulin 2.9 TSH 0.04 L Free T4 Urine Color Urine Clarity Urine pH Ur Specific [place] Urine Protein Urine Glucose (UA) Urine Ketones Urine Occult Blood Urine Nitrite Urine Bilirubin Urine Urobilinogen Ur Leukocyte Esterase Urine RBC Urine WBC Ur Squamous Epith Cells Amorphous Sediment Urine Bacteria Urine Mucus 10/27/18 08:58 WBC RBC Hgb Hct MCV MCH MCHC RDW RDW Differential Plt Count MPV Immature Gran % (Auto) Neut % (Auto) Lymph % (Auto) [place] % (Auto) Eos % (Auto) Baso % (Auto) Absolute Neuts (auto) Absolute Lymphs (auto) Total Counted Differential Comment PT INR APTT 105.7 H* Sodium Potassium Chloride Carbon Dioxide Anion Gap BUN Creatinine Estim Creat Clear Calc Est GFR (MDRD) Af Amer Est GFR (MDRD) Non-Af BUN/Creatinine Ratio Glucose Calcium Magnesium Total Bilirubin Direct Bilirubin AST ALT Alkaline Phosphatase Troponin I Total Protein Albumin Globulin TSH Free T4 Urine Color Urine Clarity Urine pH Ur Specific [place] Urine Protein Urine Glucose (UA) Urine Ketones Urine Occult Blood Urine Nitrite Urine Bilirubin Urine Urobilinogen Ur Leukocyte Esterase Urine RBC Urine WBC Ur Squamous Epith Cells Amorphous Sediment Urine Bacteria Urine Mucus Assessment/Plan Patient seen by John Torres PA-C under my supervision Patient has a history of pituitary adenoma status post, knife resection M. He was admitted through the ED with a complaint of worsening cough and flulike symptoms. He had been taking care of her sick grandson was diagnosed with croup and strep pharyngitis and his had also been sick. He was admitted with a cough productive. Blood pressure in the ED and after 2 L he was only at 82/64. Chest x-ray initially did not show infiltrate. He was admitted and managed for positive SIRS criteria initially thought to be due to adrenal crisis. Respiratory panel was ordered and he was started on stress dose steroids as well as given IV fluids for resuscitation. He was also noted to be in A. fib with RVR and this was of new onset. . He still was quite lethargic but had no complaints. Review of systems otherwise negative. Chest CT done today showed focal right upper lobe infiltrate versus atelectasis. He has been started on antibiotics for pneumonia. Blood pressure control has improved significantly. o/e: Vital Signs Height 6 ft Weight: 260 lb 2.327 oz Weight in Pounds 260.1 lbs Pulse Ox 96 Temperature 98.3 F Pulse Rate 82 Respiratory Rate 14 Blood Pressure [2nd BP] 102/58 Blood Pressure [BP] 132/69 Blood Pressure 144/70 Blood Pressure Position [2nd Semi-Fowlers BP] Blood Pressure Position [BP] Semi-Fowlers Blood Pressure Position Sitting General: Alert, Oriented x3, Cooperative, lethargic HEENT: Atraumatic, PERRLA, EOMI, Normocephalic Neck: Supple, No JVD, Negative Carotid Bruits Lungs: Normal air movement, Rales Cardiovascular: Regular rate, No murmurs Abdomen: Bowel Sounds Present, Soft, Non Tender Extremities: No edema, Capillary Refill Less than 3 Seconds Skin: No rashes, No breakdown Musculoskeletal: No Tenderness to Palpation of Joints or Extremities Neurological: Cranial nerves II-XII grossly intact Psych/Mental Status: Normal Affect, Appropriate, Alert and oriented to time, place, person, mood and affect Plan is to continue hydrating with IVF. Patient tested positive for influenza and started on Tamiflu. To continue stress dose of hydrocortisone. A. fib with RVR has resolved and is now rate controlled. He is on metoprolol. 2D echo pending. He has been started on Eliquis on account of JUSTINE VASC score of 2. He also had AK I with creatinine of 2.46 which is trending down now has come down to 1.6 with IV fluid hydration. Continue hydrating with IVF. Bicarb is down to 19 with a non-anion gap acidosis. calcium is also low, so will replace. Now on IV ceftriaxone and azithromycin for community acquired pneumonia. Rest of management as per John Torres PA-C's note, which I have reviewed and endorse. Code Visit Inpatient E&M: 19949 Subs Hosp L3
[2018-10-27] MEDS: APIXABAN 5 MG TABLET PO ×2 (16:04→21:59)
[2018-10-27] MEDS: Oseltamivir Phosphate 30 MG Capsule PO (16:04)
[2018-10-27 16:22] LABS: Partial Thromboplast Time 57.1 Seconds (24.1-36.2)
[2018-10-27] MEDS: 0.9% NaCl Peripheral Flush Adult/Peds IV (23:48)
[2018-10-28] VITALS (7 sets, daily range): BP systolic 104–140; BP diastolic 59–82; PULSE 76–95; RESP 18–20; TEMP 36.7–36.8; O2SAT 92–98
[2018-10-28] MEDS: Levothyroxine 137 MCG Tablet PO (05:25)
[2018-10-28] MEDS: Hydrocortisone Sod Succinate 100 MG/2 ML Vial IV (05:26)
[2018-10-28] MEDS: 0.9% NaCl Peripheral Flush Adult/Peds IV (05:27)
[2018-10-28 06:55] LABS: Anion Gap 8 (5-15); BUN 24 mg/dL (7-18); BUN/Creat Ratio 19.7 RATIO (10-20); Calcium,Total 8.6 mg/dL (8.5-10.1); Chloride 111 mmol/L (98-107); Creatinine, Serum 1.22 mg/dL (0.70-1.30); EST Glomerular Filtration Rate 62 mL/min (>60); Est Glom Filt Rate - Afr Amer 75 mL/min (>60); Estimated Creatinine Clearance 60.96 ml/min; Glucose 123 mg/dL (74-106); Magnesium 2.3 mg/dL (1.6-2.6); Potassium 4.3 mmol/L (3.5-5.1); Sodium Level 141 mmol/L (136-145)
[2018-10-28 07:00] LABS: Absolute Lymphocyte Count 0.53 X10^3/ul (0.83-4.51); Absolute Neutrophil Count 5.2 X10^3/uL (2.0-7.7); Hemoglobin 12.3 g/dl (13.0-16.5); Lymphocyte # 0.53 X10^3/ul (4.0); Mean Corp Hgb Conc 34.2 g/gl (32-36); Mean Corpuscular Hgb 30.8 pg (27.0-32.0); Mean Platelet Vol. 10.7 fl (6.2-12.0); Monocyte# 0.23 X10^3/uL; Monocyte% 3.9 % (0-10); Neutrophil # 5.15 X10^3/uL (2.7-7.7); Neutrophil % 86.9 % (47-70); Platelet Count 164 K/mm3 (150-450); RBC Distribution Width CV 13.6 % (11.6-14.6); RBC Distribution Width SD 44.6 fl (35.1-43.9); White Blood Count 5.9 K/mm3 (4.4-11.0)
[2018-10-28 07:08] LABS: POSITIVE COUNT NO; POSITIVE MORPHOLOGY NO
[2018-10-28 07:11] LABS: Differential Indicated SCAN CRITERIA MET; POSITIVE DIFFERENTIAL YES
[2018-10-28] MEDS: CABERGOLINE 0.5 MG TABLET PO (09:01)
[2018-10-28] MEDS: Multivitamins,Ther W-Minerals Tablet 1 TABLET PO (09:01)
[2018-10-28] MEDS: Oseltamivir Phosphate 30 MG Capsule PO (09:01)
[2018-10-28] MEDS: Calcium (Elemental) 500 MG Tablet 1000 MG PO (09:01)
[2018-10-28] MEDS: Metoprolol Tartrate 25 MG Tablet 12.5 MG PO (09:01)
[2018-10-28] MEDS: APIXABAN 5 MG TABLET PO (09:01)
[2018-10-28] MEDS: Ceftriaxone 1 GM/50 ML BAG IV (09:02)
[2018-10-28] MEDS: guaiFENesin 1,200 MG Tablet 1200 MG PO (09:04)
--- NOTE | 2018-10-28 11:21 | NURSING ---
Student nurse charting reviewed.
--- NOTE | 2018-10-28 11:46 | PCM.DC ---
- Discharge Diagnoses Current Active Problems: Current Active and Chronic Problems HTN (hypertension) (Chronic) Hypothyroidism (Chronic) URI (upper respiratory infection) (Acute) Sepsis (Acute) Atrial fibrillation with RVR (Acute) YUDI (acute kidney injury) (Acute) Glucocorticoid deficiency (Acute) SIRS (systemic inflammatory response syndrome) (Acute) You will use the following diet at home:: Cardiac Your food should be the consistency of: Regular Your liquids should be the consistency of: Regular/Thin Discharge Activity: Return to Normal Activity Allergies/Adverse Reactions: Allergies No Known Allergies Allergy (Verified 09/17/13 14:19) Medications to take at Discharge Levothyroxine [Synthroid] 137 mcg PO DAILY 05/12/13 Cabergoline 0.5 mg PO [id number] 10/26/18 Calcium (Elemental) [Os-Mariano 500] 1 gm PO DAILY 10/26/18 Hydrocortisone 5 mg PO UD 10/26/18 Multivit-Min/FA/Lycopen/Lutein [Centrum Silver Men Tablet] 1 tab PO DAILY 10/26/18 Testosterone [Androgel] 2 pump TD DAILY 10/26/18 Apixaban [Eliquis] 5 mg PO BID #60 tablet 10/27/18 Apixaban [Eliquis] 5 mg PO BID #0 tablet 10/28/18 Azithromycin 500 mg PO DAILY #1 tablet 10/28/18 Cefdinir [Omnicef [equiv]] 300 mg PO Q12H #6 capsule 10/28/18 Metoprolol Tartrate [Lopressor (beta fatou)] 12.5 mg PO BID #30 tablet 10/28/18 Oseltamivir Phosphate [Tamiflu] 30 mg PO BID #8 capsule 10/28/18 The following prescriptions were given: Apixaban [Eliquis] 5 mg PO BID #60 tablet Azithromycin 500 mg PO DAILY #1 tablet Cefdinir [Omnicef [equiv]] 300 mg PO Q12H #6 capsule Metoprolol Tartrate [Lopressor (beta fatou)] 12.5 mg PO BID #30 tablet Oseltamivir Phosphate [Tamiflu] 30 mg PO BID #8 capsule Primary Care Physician: [facility],[place] [Primary Care Provider] - Please follow up with your Primary Care Physician in: 1-2 weeks Test Results: Test results from this visit will be discussed in further detail at your follow-up appointment, if applicable. Proposed Discharge Date: 10/28/18
--- NOTE | 2018-10-28 12:13 | PCA ---
Faxed D/C paperwork to [facility].
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
[2018-11-03 03:34] LABS: BUN/Creat Ratio 16.2 RATIO (10-20); EST Glomerular Filtration Rate 46 mL/min (>60); Est Glom Filt Rate - Afr Amer 55 mL/min (>60)
== END 2018-10-28 12:23 | disposition home or self-care (01) | DRG 871 ==
LOC: ED 14:30 → PCU 17:00
PROVIDERS: Physician Assistant; Student in an Organized Health Care Education/Training Program; Emergency Provider Emergency Medicine; Visit Provider Internal Medicine
DX: A41.9 Sepsis, unspecified organism (principal); J10.00 Influenza due to other identified influenza virus with unspecified type of pneumonia; E87.1 Hypo-osmolality and hyponatremia; N17.9 Acute kidney failure, unspecified; E27.2 Addisonian crisis; E03.9 Hypothyroidism, unspecified; I48.91 Unspecified atrial fibrillation; E89.3 Postprocedural hypopituitarism; I10 Essential (primary) hypertension; Z89.611 Acquired absence of right leg above knee
CPT/HCPCS: 36415; 71045; 71250; 80048; 80053; 80076; 81001; 83605; 83735; 84439; 84443; 84484; 85025; 85610; 85730; 87040; 87086; 87449; 87633; 87804; 93005; 93306; 94667; 94668; 97162; 97166; 97530; 99285; J7030; J7040; Q9957; A4216; C8929; J2405

== ENCOUNTER → 2021-02-03 15:32 | Outpatient (CLI) | payer OTHER, SELFPAY ==
[2021-02-03 15:02] VITALS: BMI 34.4
[2021-02-03 15:50] LABS: Absolute Lymphocyte Count 0.98 X10^3/uL (0.83-4.51); Absolute Neutrophil Count 1.8 X10^3/uL (2.0-7.7); Basophil# 0.04 X10^3/uL; Basophil% 1.2 % (0-1); Eosinophil# 0.11 X10^3/uL; Eosinophils% 3.3 % (0-5); Hematocrit 37.5 % (40-54); Hemoglobin 13.4 g/dL (13.0-16.5); Lymphocyte # 0.98 X10^3/ul (0.83-4.51); Lymphocyte % 29.8 % (19-41); Mean Corp Hgb Conc 35.7 g/dL (32-36); Mean Corpuscular Hgb 31.4 pg (27.0-32.0); Mean Corpuscular Volume 87.8 fL (80-94); Mean Platelet Vol. 9.5 fl (6.2-12.0); Monocyte# 0.31 X10^3/uL; Monocyte% 9.4 % (0-10); NRBC Flagged by Analyzer 0 % (0-5); Neutrophil # 1.84 X10^3/uL (2.7-7.7); Platelet Count 260 K/mm3 (150-450); RBC Distribution Width CV 12.8 % (11.6-14.6); RBC Distribution Width SD 40.6 fl (35.1-43.9); Red Blood Count 4.27 M/mm3 (4.6-6.2); White Blood Count 3.3 K/mm3 (4.4-11.0)
--- NOTE | 2021-02-03 15:58 | CT_ITS ---
INDICATION: weight loss EXAMINATION: CT Abdomen And Pelvis W/ Contrast Injection TECHNIQUE: Helically acquired images were obtained of the abdomen and pelvis after IV contrast. A radiation dose optimization technique was used for this scan. IV Contrast dosage and agent: Oral and amp; IV Gastrografin and amp; 100mL Isovue-300 Oral contrast: Yes. COMPARISON: None. FINDINGS: Visualized lung bases: Unremarkable Liver: Unremarkable Gallbladder: Few small intraluminal stones seen. Spleen: Unremarkable Pancreas: Unremarkable Adrenal Glands: Not visualized. Kidneys: Unremarkable Vasculature: Mild scattered aortoiliac atherosclerotic calcifications. GI Tract: Large amount of retained gas and stool within the colon. Soft tissue attenuation prominence at the ileocecal valve. Lymphadenopathy: None Peritoneum: No ascites. Bladder: Unremarkable Reproductive organs: Unremarkable Bones/Soft tissues: There are diffuse degenerative changes of the spine. CT/Abdomen/Pelvis WITH Contrast IMPRESSION: Soft tissue attenuation prominence at the ileocecal valve. This could be related to impacted stool, however cannot rule out malignancy. Consider colonoscopy. Otherwise, no acute abnormalities in the abdomen or pelvis. Cholelithiasis. Electronically Signed: Steve Burton MD at 19:52 EDT Tel , Service support ,
[2021-02-03 16:32] LABS: ALB/GLOB Ratio 1.2 RATIO (0.9-2.4); AST(SGOT) 43 U/L (15-37); Alanine Aminotransfer ALT/SGPT 22 U/L (16-61); Albumin, Serum 4.2 g/dL (3.2-5.0); Alkaline Phosphatase 69 U/L (45-117); Amylase 41 U/L (25-115); Anion Gap 6 (5-15); BUN 25 mg/dL (7-18); BUN/Creat Ratio 18.5 RATIO (10-20); Chloride 96 mmol/L (98-107); Creatinine, Serum 1.35 mg/dL (0.70-1.30); EST Glomerular Filtration Rate 55 mL/min (>60); Est Glom Filt Rate - Afr Amer 67 mL/min (>60); Globulin 3.5 g/dL (2.2-4.2); Glucose 85 mg/dL (74-106); Lipase 75 U/L (73-393); Potassium 4.9 mmol/L (3.5-5.1); Protein, Total 7.7 g/dL (6.4-8.2); Sodium Level 127 mmol/L (136-145)
[2021-02-03 18:20] LABS: CREATININE FINGERSTICK 0.8 mg/dL (0.70-1.30); EGFR FINGERSTICK > 60.0000 mL/min (>60)
== END ==
PROVIDERS: Referring Provider Surgery; Visit Provider Surgery
DX: R10.9 Unspecified abdominal pain (principal)
CPT/HCPCS: 36415; 74177; 80053; 82150; 83690; 85025; Q9967

== ENCOUNTER 2021-02-11 05:16 | Day surgery (SDC) | payer OTHER, SELFPAY ==
[2021-02-03 15:02] VITALS: BMI 34.4
[2021-02-11] VITALS (8 sets, daily range): BP systolic 100–118; BP diastolic 59–82; PULSE 79–102; RESP 16–18; TEMP 36.1–36.6; O2SAT 92–100; BMI 34.9
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
[2021-02-11] MEDS: Lactated Ringers 1,000 ML 100 ML IV (06:14)
--- NOTE | 2021-02-11 06:30 | IMM_PTH ---
PATIENT: BALDO SIMMS LOC: EN U#:[id number] AGE/SX: 75/M ROOM: RE02/11/[address]: Dr. Justin Hearn MD : 1945 BED: DIS: 02/11/2021 SPEC #: [id number] RECD: 02/11/21 13:14 STATUS: KEITH YIFAN #: [id number] NOHEMI: 02/11/21 06:[address]: Justin Hearn DEPT: IMMUNOHISTOCHEMISTRY RECD BY: Fadia Carter ENTERED: 02/11/21 13:15 SP TYPE: IMMUNO OT DR: [facility] Tissues: B - Stomach, NOS Procedures: H Pylori (initial) PHYSICIAN & INSTITUTION [place] [address] SPECIMEN INFORMATION: Tissue Source: B ? Antrum biopsy Clinical Info: Change in bowel habits, nausea, weight loss, constipation, lower abdominal pain Specimen Number: [id number] CPT code: 68909 METHODOLOGY: Deparaffinized sections of prefer/formalin-fixed tissue or PAP/DQ stained slides are incubated with monoclonal/polyclonal antibodies/oligonucleotide probes. Localization is made via biotin free immunoperoxidase method. Appropriate controls are performed and reacted as expected. Results on target cell population are indicated in the following table: RESULTS: ANTIBODY / CLONE RESULT Block B H Pylori (polyclonal) negative These tests were developed and their performance characteristics determined by [facility]. They may not have been cleared or approved by the U.S. Food and Drug Administration. The FDA has determined that such clearance or approval is not necessary. INTERPRETATION: B. Antrum biopsy: Negative for Helicobacter pylori organisms. SJ:donna 02/12/2021
--- NOTE | 2021-02-11 06:30 | EGD_PTH ---
PATIENT: BALDO SIMMS LOC: EN U#:[id number] AGE/SX: 75/M ROOM: RE02/11/[address]: Dr. Justin Hearn MD : 1945 BED: DIS: 02/11/2021 SPEC #: [id number] RECD: 02/11/21 08:43 STATUS: KEITH YIFAN #: [id number] NOHEMI: 02/11/21 06:[address]: Justin Hearn DEPT: SURGICAL PATHOLOGY RECD BY: Brigitte Powers ENTERED: 02/11/21 10:42 SP TYPE: EGD BIOPSY OT DR: [facility] Tissues: A - Duodenum, NOS B - Gastric mucous membrane C - Esophagus, NOS D - Cecum, NOS Procedures: Special Stain Group II Surgery Specimen Level IV Alcian Blue/PAS (control) HEADER OPERATION: Colonoscopy, EGD ([facility]) PRE-OP DIAGNOSIS: Change in bowel habits, nausea, weight loss, constipation, acute bilateral lower abdominal pain TISSUE SUBMITTED: A - Duodenum biopsy, B - Antrum biopsy for H. pylori and path, C - Distal esophagus biopsy, D - Ileocecal valve biopsy MICROSCOPIC DIAGNOSIS A. Duodenum, biopsy: Fragments of duodenal mucosa with focal mild congestion and hemorrhage. B. Antrum, biopsy: Mild gastritis. See microscopic description and comment. C. Distal esophagus, biopsy: A fragment of gastroesophageal mucosa with mild chronic inflammation. Intestinal metaplasia (goblet cell metaplasia) not identified. See comment. D. Ileocecal valve, biopsy: A fragment of small intestinal mucosa, no pathologic diagnosis. SJ:rg 02/12/2021 COMMENT B. The results of immunohistochemistry for Helicobacter pylori will be reported separately ([id number]). C. Alcian blue/PAS stain with matched control is used in the evaluation of the specimen. MICROSCOPIC DESCRIPTION Slides are reviewed. B. The specimen shows fragments of gastric mucosa with chronic inflammatory cell infiltrates in the lamina propria consisting of lymphocytes and plasma cells, consistent with mild chronic gastritis. GROSS DESCRIPTION A - Received in fixative is one container labeled with the patient's name and designated duodenum biopsy. The specimen consists of two irregular fragments of light lim soft tissue that in aggregate measure 0.5 x 0.3 x 0.1 cm. The specimen is totally submitted in one cassette. B - Received in fixative is one container labeled with the patient's name and designated antrum biopsy. The specimen consists of one irregular fragment of light lim soft tissue that measures 0.3 x 0.3 x 0.1 cm. The specimen is totally submitted in one cassette. C - Received in fixative is one container labeled with the patient's name and designated distal esophagus biopsy. The specimen consists of one irregular fragment of light lim soft tissue that measures 0.5 x 0.2 x 0.1 cm. The specimen is totally submitted in one cassette. D - Received in fixative is one container labeled with the patient's name and designated ileocecal valve biopsy. The specimen consists of one irregular fragment of light lim soft tissue that measures 0.3 x 0.3 x 0.1 cm. The specimen is totally submitted in one cassette. / SJ:rg 02/11/21 TC:3 CPT: 45844 x4, 03993
[2021-02-11 07:41] LABS: Absolute Lymphocyte Count 1.13 X10^3/uL (0.83-4.51); Absolute Neutrophil Count 1.2 X10^3/uL (2.0-7.7); Basophil# 0.02 X10^3/uL; Basophil% 0.7 % (0-1); Eosinophil# 0.09 X10^3/uL; Eosinophils% 3.3 % (0-5); Hematocrit 32.4 % (40-54); Hemoglobin 11.7 g/dL (13.0-16.5); Lymphocyte # 1.13 X10^3/ul (0.83-4.51); Lymphocyte % 41.4 % (19-41); Mean Corp Hgb Conc 36.1 g/dL (32-36); Mean Corpuscular Hgb 31.4 pg (27.0-32.0); Mean Corpuscular Volume 86.9 fL (80-94); Mean Platelet Vol. 9.8 fl (6.2-12.0); Monocyte# 0.31 X10^3/uL; Monocyte% 11.4 % (0-10); NRBC Flagged by Analyzer 0 % (0-5); Neutrophil # 1.17 X10^3/uL (2.7-7.7); Neutrophil % 42.8 % (47-70); Platelet Count 214 K/mm3 (150-450); RBC Distribution Width CV 12.8 % (11.6-14.6); RBC Distribution Width SD 40.2 fl (35.1-43.9); Red Blood Count 3.73 M/mm3 (4.6-6.2); White Blood Count 2.7 K/mm3 (4.4-11.0)
[2021-02-11 07:47] LABS: Anion Gap 6 (5-15); BUN 16 mg/dL (7-18); BUN/Creat Ratio 13.6 RATIO (10-20); Calcium,Total 8.4 mg/dL (8.5-10.1); Chloride 94 mmol/L (98-107); Creatinine, Serum 1.18 mg/dL (0.70-1.30); EST Glomerular Filtration Rate 64 mL/min (>60); Est Glom Filt Rate - Afr Amer 78 mL/min (>60); Glucose 88 mg/dL (74-106); Potassium 4.7 mmol/L (3.5-5.1); Sodium Level 125 mmol/L (136-145)
--- NOTE | 2021-02-11 10:17 | OP.EGD_ITS ---
Patient Name: Julito Felix Procedure Date: 02/11/2021 6:19 AM Date of : 1945 Age: 75 Procedure: Upper GI endoscopy Indications: Generalized abdominal pain Providers: Justin Hearn MD Medicines: See the Anesthesia note for documentation of the administered medications Complications: No immediate complications. Procedure: Pre-Anesthesia Assessment: - Prior to the procedure, a History and Physical was performed, and patient medications and allergies were reviewed. The patient's tolerance of previous anesthesia was also reviewed. The risks and benefits of the procedure and the sedation options and risks were discussed with the patient. All questions were answered, and informed consent was obtained. Prior Anticoagulants: The patient has taken no previous anticoagulant or antiplatelet agents. ASA Grade Assessment: III - A patient with severe systemic disease. After reviewing the risks and benefits, the patient was deemed in satisfactory condition to undergo the procedure. After obtaining informed consent, the endoscope was passed under direct vision. Throughout the procedure, the patient's blood pressure, pulse, and oxygen saturations were monitored continuously. The Endoscope was introduced through the mouth, and advanced to the second part of duodenum. The upper GI endoscopy was accomplished without difficulty. The patient tolerated the procedure well. Scope In: 6:32:32 AM Scope Out: 6:38:21 AM Total Procedure Duration Time 0 hours 5 minutes 49 seconds Findings: A small hiatal hernia was present. Curvature at the EG junction Very high positioning of the fundus cephalad Diffuse mild inflammation characterized by erythema was found in the entire examined stomach. Biopsies were taken with a cold forceps for histology. Diffuse moderately erythematous mucosa without active bleeding and with no stigmata of bleeding was found in the duodenal bulb. Biopsies were taken with a cold forceps for histology. Impression: - Small hiatal hernia. - Chronic gastritis. Biopsied. - Erythematous duodenopathy. Biopsied. Recommendation: - Discharge patient to home. - Resume previous diet. - Continue present medications. - Use Prilosec (omeprazole) 20 mg PO daily. Procedure Code(s): --- Professional --- 80064, Esophagogastroduodenoscopy, flexible, transoral; with biopsy, single or multiple Diagnosis Code(s): --- Professional --- K44.9, Diaphragmatic hernia without obstruction or gangrene K29.50, Unspecified chronic gastritis without bleeding K31.89, Other diseases of stomach and duodenum R10.84, Generalized abdominal pain CPT copyright 2017 [employer]. All rights reserved. The codes documented in this report are preliminary and upon experimental machinist review may be revised to meet current compliance requirements. Justin Hearn MD 02/11/2021 7:14:48 AM This report has been signed electronically. Number of Addenda: 0 Note Initiated On: 02/11/2021 6:19 AM
--- NOTE | 2021-02-11 10:17 | OP.CCLET_ITS ---
02/11/2021 [facility] Re : Colonoscopy procedure for Julito [facility]vira [facility] This procedure was performed on Thursday, February 11, 2021. My impressions and recommendations are as follows: Impressions : - Preparation of the colon was fair. - Hemorrhoids found on perianal exam. - Redundant colon. - Dilated in the transverse colon and in the ascending colon. - The ileocecal valve is normal. Biopsied. - Diverticulosis in the sigmoid colon and in the descending colon. I suspect chronic right sided constipation secondary to decreased activity and body habitus, daily miralax will be recommended Recommendations : - Discharge patient to home. - Resume previous diet. - Continue present medications. - Miralax 1 capful (17 grams) in 8 ounces of water PO daily. - Repeat colonoscopy in 10 years for screening purposes. - Telephone my office for pathology results in 1 week. Followup labs today and recommended followup with [facility] within 1 week My findings are described in the full procedure note, which is enclosed. If I can be of further assistance, please feel free to contact me at Doctor phone number(s): Work: . Sincerely, Justin Hearn MD 02/11/2021 7:21:06 AM This report has been signed electronically.
--- NOTE | 2021-02-11 10:17 | OP.CCLET_ITS ---
02/11/2021 [facility] Re : Upper GI endoscopy procedure for Julito [facility] This procedure was performed on Thursday, February 11, 2021. My impressions and recommendations are as follows: Impressions : - Small hiatal hernia. - Chronic gastritis. Biopsied. - Erythematous duodenopathy. Biopsied. Recommendations : - Discharge patient to home. - Resume previous diet. - Continue present medications. - Use Prilosec (omeprazole) 20 mg PO daily. My findings are described in the full procedure note, which is enclosed. If I can be of further assistance, please feel free to contact me at Doctor phone number(s): Work: . Sincerely, Justin Hearn MD 02/11/2021 7:14:48 AM This report has been signed electronically.
--- NOTE | 2021-02-11 10:17 | OP.COLON_ITS ---
Patient Name: Julito Felix Procedure Date: 02/11/2021 6:39 AM Date of : 1945 Age: 75 Procedure: Colonoscopy Indications: Generalized abdominal pain Providers: Justin Hearn MD Medicines: See the Anesthesia note for documentation of the administered medications Patient Profile: Last Colonoscopy: date unknown. Complications: No immediate complications. Procedure: Pre-Anesthesia Assessment: - Prior to the procedure, a History and Physical was performed, and patient medications and allergies were reviewed. The patient's tolerance of previous anesthesia was also reviewed. The risks and benefits of the procedure and the sedation options and risks were discussed with the patient. All questions were answered, and informed consent was obtained. Prior Anticoagulants: The patient has taken no previous anticoagulant or antiplatelet agents. ASA Grade Assessment: III - A patient with severe systemic disease. After reviewing the risks and benefits, the patient was deemed in satisfactory condition to undergo the procedure. After I obtained informed consent, the scope was passed under direct vision. Throughout the procedure, the patient's blood pressure, pulse, and oxygen saturations were monitored continuously. The adult colonoscope was introduced through the anus and advanced to the cecum, identified by appendiceal orifice and ileocecal valve. The colonoscopy was performed with moderate difficulty due to a redundant colon and the patient's body habitus. Successful completion of the procedure was aided by changing the patient to a supine position and using manual pressure. The patient tolerated the procedure well. The quality of the bowel preparation was fair. The ileocecal valve and the appendiceal orifice were photographed. Scope In: 6:41:26 AM Scope Withdrawal Time 0 hours 10 minutes 39 seconds Scope Out: 7:03:54 AM Total Procedure Duration Time 0 hours 22 minutes 28 seconds Findings: Hemorrhoids were found on perianal exam. The colon (entire examined portion) was moderately redundant. The lumen of the transverse colon and ascending colon was moderately dilated. The ileocecal valve appeared normal. Biopsies were taken with a cold forceps for histology. Scattered diverticula were found in the sigmoid colon and descending colon. Impression: - Preparation of the colon was fair. - Hemorrhoids found on perianal exam. - Redundant colon. - Dilated in the transverse colon and in the ascending colon. - The ileocecal valve is normal. Biopsied. - Diverticulosis in the sigmoid colon and in the descending colon. I suspect chronic right sided constipation secondary to decreased activity and body habitus, daily miralax will be recommended Recommendation: - Discharge patient to home. - Resume previous diet. - Continue present medications. - Miralax 1 capful (17 grams) in 8 ounces of water PO daily. - Repeat colonoscopy in 10 years for screening purposes. - Telephone my office for pathology results in 1 week. Followup labs today and recommended followup with [facility] within 1 week Procedure Code(s): --- Professional --- 05024, Colonoscopy, flexible; with biopsy, single or multiple Diagnosis Code(s): --- Professional --- K64.9, Unspecified hemorrhoids K59.39, Other megacolon R10.84, Generalized abdominal pain K57.30, Diverticulosis of large intestine without perforation or abscess without bleeding Q43.8, Other specified congenital malformations of intestine CPT copyright 2017 [employer]. All rights reserved. The codes documented in this report are preliminary and upon learning support teacher review may be revised to meet current compliance requirements. Justin Hearn MD 02/11/2021 7:21:06 AM This report has been signed electronically. Number of Addenda: 0 Note Initiated On: 02/11/2021 6:39 AM
== END 2021-02-11 09:20 ==
LOC: EN 05:18 → AC 05:19
PROVIDERS: Visit Provider Surgery
PROC: 0DJD8ZZ Inspection of Lower Intestinal Tract, Via Natural or Artificial Opening Endoscopic (ICD-10-PCS; CPT 45378; principal; 2021-02-11 06:25)
DX: K57.30 Diverticulosis of large intestine without perforation or abscess without bleeding (principal); K64.9 Unspecified hemorrhoids; K59.39 Other megacolon; K44.9 Diaphragmatic hernia without obstruction or gangrene; K29.50 Unspecified chronic gastritis without bleeding; K31.89 Other diseases of stomach and duodenum; Q43.8 Other specified congenital malformations of intestine; I48.91 Unspecified atrial fibrillation; I10 Essential (primary) hypertension; E03.9 Hypothyroidism, unspecified; E66.9 Obesity, unspecified; Z68.34 Body mass index [BMI] 34.0-34.9, adult; Z87.891 Personal history of nicotine dependence; Z79.02 Long term (current) use of antithrombotics/antiplatelets; Z79.899 Other long term (current) drug therapy
CPT/HCPCS: 43239; 45380; 80048; 85025; 88305; 88313; 88342; J7120; J2405

== ENCOUNTER 2021-02-11 10:54 | Emergency (ER) | payer MEDICARE, OTHER, SELFPAY ==
[2021-02-11 05:51] VITALS: BMI 34.9
[2021-02-11 10:55] VITALS: BP 115/69; PULSE 79; RESP 16; TEMP 35.9; O2SAT 93; BMI 34.8
--- NOTE | 2021-02-11 11:14 | EX.ED.DYSGE1 ---
HPI History of Present Illness Chief Complaint: Abn Labs Narrative Narrative: 75-year-old male presenting with generalized weakness. He states he does not have dizziness. He was told to come to the ED due to a change in his white blood cell count. Patient [facility] told him to come right to the emergency room as they would not be able to see him quickly enough. He states that it is lower than previous. He states his sodium is also low at 125. Patient has had some abdominal pain which was just evaluated by colonoscopy by Dr. Hearn. There were no acute findings at the patient knows of. Patient has not had any change in the discomfort. Patient has not had nausea or vomiting. He denies fever or chills. He denies cough, shortness of breath. [facility] Medical History YUDI (acute kidney injury) Alcohol use Ambulates with cane Atrial fibrillation with RVR Cardiology follow-up encounter Change in bowel habits Constipation Dysphagia Early satiety Former smoker Glucocorticoid deficiency Headache Heartburn History of echocardiogram History of steroid therapy History of stress test HTN (hypertension) Hypothyroidism Nausea Pituitary tumor Sepsis SIRS (systemic inflammatory response syndrome) Thyroid disease URI (upper respiratory infection) Wears glasses Weight loss Home Medications levothyroxine 137 mcg PO DAILY 05/12/13 [History Last Taken 10/24/18] Centrum Silver Men 1 tab PO DAILY 10/26/18 [History Last Taken 10/24/18] cabergoline 0.5 mg PO MOWEFRSA 10/26/18 [History Last Taken 10/23/18] calcium carbonate [Oyster Shell Calcium 500] 1 g PO DAILY 10/26/18 [History Last Taken 10/24/18] hydrocortisone 5 mg PO DAILY 10/26/18 [History Last Taken 10/24/18] Eliquis 5 mg PO BID #0 tablet 10/28/18 [Rx Last Taken Unknown] Allergy/AdvReac Type Severity Reaction Status Date / Time coconut Allergy Rash Verified 02/11/21 10:54 pineapple Allergy Rash Verified 02/11/21 10:54 omeprazole [From Prilosec] AdvReac Upset Verified 02/11/21 10:54 Stomach Surgical History History of brain surgery (~2006) History of colonoscopy (04/20/06) History of right lower limb amputation (~01/2003) Social History Smoking Status: Former smoker ROS ROS ED Constitutional Constitutional ED: Reports other Details: Generalized weakness ; Denies chills or fever(s) Eyes Eyes: Denies blurry vision or diplopia ENT ENT ED: Denies rhinorrhea or sore throat Cardiovascular Cardiovascular: Denies chest pain, palpitations or racing heartbeat Respiratory/Chest Respiratory/Chest: Denies cough, dyspnea or sputum Gastrointestinal Gastrointestinal: Reports abdominal pain and constipation; Denies diarrhea, nausea or vomiting Genitourinary Genitourinary ED: Denies dysuria or hematuria Musculoskeletal Musculoskeletal: Denies arthralgias or myalgias Integumentary Denies abscess or rash Neurologic Neurologic: Denies headache(s) or paresthesias Psychiatric Psychiatric: Denies anxiety or depression EXAM Physical Exam Const Vital Signs: 02/11/21 10:55 02/11/21 11:36 Temperature 96.7 F L Temperature Source Temporal Pulse Rate 79 Respiratory Rate 16 Respiratory Effort Normal Non-Labored Respiratory Pattern Normal Blood Pressure 115/69 Blood Pressure Mean 84 Pulse Ox 93 Oxygen Delivery Method Room Air Positive well nourished General Appearance ED: NAD HEENT Reports moist mucous membranes Negative for trauma Eyes PERRL and EOMs intact bilaterally General Eye ED: Negative for pale conjunctiva Resp normal respiratory effort and clear to auscultation bilaterally Auscultation: Negative for rales, rhonchi or wheezes Cardio regular rate and regular rhythm GI normal to inspection, nondistended, normoactive bowel sounds Back/Spine no CVA tenderness Neuro oriented x3 and CN's II-XII intact bilaterally Sensorium / Orientation: alert Psych mental status grossly normal Skin no rashes or lesions noted and no wounds MDM MDM MDM Narrative Medical decision making narrative: Patient presenting with generalized weakness. He believes it is due to his recent colonoscopy and the bowel prep. Patient was told that he had a low sodium at 125 as well as low white blood cell count of 2.7. Looking in the medical record his sodium and white blood cell count have been low in the past. Patient states that he was given a prescription for medication to increase his sodium from Dr. Hearn but he has not picked up this prescription yet. Patient's total bilirubin is 1.10 this is actually lower than usual. Urinalysis is negative. Chest x-ray is interpreted by myself shows no acute cardiopulmonary process. Radiology does state that there is possible bibasilar atelectasis versus infiltrates however the patient does not have a cough, fever, shortness of breath. I do not believe this is infiltrates. Patient I feel this time patient is able to be discharged home in stable condition. Impression: 1. Hyponatremia 2. Leukopenia 3. Generalized weakness Lab Data Labs: Laboratory Results - last 24 hr 02/11/21 02/11/21 11:28 13:20 Total Bilirubin 1.10 H Direct Bilirubin 0.41 H AST 26 ALT 22 Alkaline Phosphatase 60 Troponin I High Sens 7.6 Total Protein 6.7 Albumin 3.8 Globulin 2.9 TSH 0.07 L Urine Color Yellow Urine Clarity Clear Urine pH 5.0 Ur Specific [place] 1.020 Urine Protein Negative Urine Glucose (UA) Normal Urine Ketones Negative Urine Occult Blood Negative Urine Nitrite Negative Urine Bilirubin Negative Urine Urobilinogen Normal Ur Leukocyte Esterase Negative Urine RBC 0 SEEN Urine WBC 0 SEEN Ur Squamous Epith Cells 0 SEEN Urine Bacteria 0 SEEN Urine Mucus 0 SEEN Radiography Diagnostic Testing: Radiology Impression Chest X-Ray 02/11/21 11:21 IMPRESSION: Mild degree of increased markings at the lung bases suggestive of bibasilar atelectasis and/or infiltrates. Electronically Signed: Augusto Youngblood MD at 12:03 EDT , Service support , Discharge Plan Triage Chief Complaint: Abn Labs ED Provider: Melchor Rouse Dx/Rx/DC Orders Instructions: ED Hyponatremia, ED Weakness (Uncertain Cause) Prescriptions: No Action levothyroxine 137 MCG tablet 137 mcg PO DAILY RF: 0 hydrocortisone 5 MG tablet 5 mg PO DAILY RF: 0 cabergoline 0.5 MG tablet 0.5 mg PO MOWEFRSA RF: 0 calcium carbonate [Oyster Shell Calcium 500] 500 MG tablet 1 g PO DAILY RF: 0 Centrum Silver Men 1 EACH tablet 1 tab PO DAILY RF: 0 Eliquis 5 MG tablet 5 mg PO BID Qty: 0 RF: 0 [facility] - Disposition Disposition: Home, Self Care
--- NOTE | 2021-02-11 11:21 | RAD_ITS ---
STUDY: X-RAY CHEST REASON FOR EXAM: Male, 75 years old. Weakness. Abnormal white cell count. TECHNIQUE: Single AP portable view of the chest. COMPARISON: Comparison is made with prior examination dated 10/26/2018. FINDINGS: There is a mild degree of increased markings at the lung bases suggestive of either bibasilar atelectasis and/or early infiltrates. There is no demonstrated pleural abnormality. Normal size heart. Normal mediastinum and jami. Normal visualized pulmonary arteries. There is atherosclerotic tortuosity of the aortic arch and descending thoracic aorta. There are diffuse degenerative changes of the visualized thoracic spine. There is degenerative osteoarthritis of the bilateral shoulders. There is no demonstrated abnormality of the visualized soft tissue structures of the upper abdomen. RAD/Chest 1 View (Portable) IMPRESSION: Mild degree of increased markings at the lung bases suggestive of bibasilar atelectasis and/or infiltrates. Electronically Signed: Augusto Youngblood MD at 12:03 EDT , Service support ,
--- NOTE | 2021-02-11 11:21 | EKG12_ITS ---
Test Reason : ABN LABS Blood Pressure : / mmHG Vent. Rate : 082 BPM Atrial Rate : 107 BPM P-R Int : 000 ms QRS Dur : 110 ms QT Int : 410 ms P-R-T Axes : 000 035 008 degrees QTc Int : 479 ms Atrial fibrillation Abnormal ECG Confirmed by ANGELICA WHEAT, HUMERA ([id number]), features editor CATRINA BRITO ([id number]) on 02/13/2021 10:07:49 AM Referred By: ELLIOT Confirmed By:HUMERA DOMINGUEZ MD
[2021-02-11] MEDS: 0.9% Normal Saline 1,000 ML 1000 ML IV (11:35)
[2021-02-11 12:00] LABS: AST(SGOT) 26 U/L (15-37); Alanine Aminotransfer ALT/SGPT 22 U/L (16-61); Albumin, Serum 3.8 g/dL (3.2-5.0); Alkaline Phosphatase 60 U/L (45-117); Bilirubin, Direct 0.41 mg/dL (0.00-0.30); Globulin 2.9 g/dL (2.2-4.2); Protein, Total 6.7 g/dL (6.4-8.2); Thyroid Stim Hormone (TSH) 0.07 uIU/mL (0.358-3.74); Troponin-I HS 7.6 pg/mL (3.0-78.5)
[2021-02-11 13:29] LABS: Bacteria 0 SEEN /hpf (None Seen); Mucous, Urine 0 SEEN /hpf (<or=2+); Red Blood Cells-Urine 0 SEEN /hpf (0-5); Squamous Epithelial Cells - UA 0 SEEN /hpf (0-5); White Blood Cells 0 SEEN /hpf (0-5)
[2021-02-11 13:30] LABS: Color, Urine Yellow (Yellow); Glucose, Dipstick Normal (Normal); Ketone-Dipstick Negative (Negative); Leukocyte Esterase-Dipstick Negative /ul (Negative); Nitrite-Dipstick Negative (Negative); Occult Blood-Urine Negative /ul (Negative); Protein-Dipstick Negative (Negative); Urine Bilirubin Dipstick Negative (Negative); Urine Clarity Clear (Clear); Urine Urobilinogen Normal (Normal)
[2021-02-11 14:34] VITALS: BP 97/67; PULSE 64; RESP 16; O2SAT 94
== END 2021-02-11 14:34 | disposition home or self-care (01) ==
PROVIDERS: Emergency Provider Student in an Organized Health Care Education/Training Program
DX: R53.1 Weakness (principal); E87.1 Hypo-osmolality and hyponatremia; D72.819 Decreased white blood cell count, unspecified; I48.91 Unspecified atrial fibrillation; I10 Essential (primary) hypertension; E03.9 Hypothyroidism, unspecified; Z87.891 Personal history of nicotine dependence; Z79.02 Long term (current) use of antithrombotics/antiplatelets; Z79.899 Other long term (current) drug therapy
CPT/HCPCS: 71045; 80076; 81001; 84443; 84484; 93005; 96360; 96361; 99283; J7030; A4216

== ENCOUNTER 2022-08-08 08:19 | Observation (INO) | payer OTHER, SELFPAY ==
[2022-08-08] VITALS (11 sets, daily range): BP systolic 105–144; BP diastolic 65–82; PULSE 47–74; RESP 14–18; TEMP 35.6–36.8; O2SAT 93–100; BMI 38.1; BMI 37.0
--- NOTE | 2022-08-08 08:32 | RAD_ITS ---
STUDY: X-RAY CHEST REASON FOR EXAM: Male, 76 years old. Chest pain TECHNIQUE: Single AP portable view of the chest. COMPARISON: 02/11/2021. FINDINGS: The lungs are clear and expanded. There is no demonstrated pleural abnormality. Borderline cardiomegaly, unchanged. Normal mediastinum and jami. Normal visualized pulmonary arteries. There is atherosclerotic calcification of the aortic arch . There are diffuse degenerative changes of the visualized thoracic spine. Normal visualized ribs, clavicles, and shoulders. There is no demonstrated abnormality of the visualized soft tissue structures of the upper abdomen. RAD/Chest 1 View (Portable) IMPRESSION: No acute cardiopulmonary disease Electronically Signed: Ethan Grace MD at 9:08 EST ,
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
[2022-08-08 08:53] LABS: Absolute Neutrophil Count 2.2 X10^3/uL (2.0-7.7); Basophil# 0.05 X10^3/uL; Basophil% 1.1 % (0-1); Eosinophil# 0.19 X10^3/uL; Eosinophils% 4.1 % (0-5); Hematocrit 35.5 % (40-54); Hemoglobin 12.6 g/dL (13.0-16.5); Lymphocyte % 41.3 % (19-41); Mean Corp Hgb Conc 35.5 g/dL (32-36); Mean Corpuscular Hgb 34.8 pg (27.0-32.0); Mean Corpuscular Volume 98.1 fL (80-94); Mean Platelet Vol. 10.8 fl (6.2-12.0); Monocyte# 0.26 X10^3/uL; Monocyte% 5.7 % (0-10); NRBC Flagged by Analyzer 0 % (0-5); Neutrophil # 2.16 X10^3/uL (2.7-7.7); Neutrophil % 46.9 % (47-70); Platelet Count 145 K/mm3 (150-450); RBC Distribution Width CV 15.4 % (11.6-14.6); RBC Distribution Width SD 55.6 fl (35.1-43.9); Red Blood Count 3.62 M/mm3 (4.6-6.2); White Blood Count 4.6 K/mm3 (4.4-11.0)
[2022-08-08] MEDS: Aspirin 81 MG TAB.CHEW 324 MG PO (08:55)
[2022-08-08 09:10] LABS: Anion Gap 3 (5-15); BUN 25 mg/dL (7-18); BUN/Creat Ratio 13.4 RATIO (10-20); Chloride 100 mmol/L (98-107); Creatinine, Serum 1.86 mg/dL (0.70-1.30); EST Glomerular Filtration Rate 38 mL/min (>60); Est Glom Filt Rate - Afr Amer 46 mL/min (>60); Estimated Creatinine Clearance 35.98 ml/min; Glucose 80 mg/dL (74-106); Potassium 4.6 mmol/L (3.5-5.1); Sodium Level 134 mmol/L (136-145); Troponin-I HS (w/2H Reflex) 11 pg/mL (3.0-78.0)
[2022-08-08 10:49] LABS: Reflex Troponin-HS? (from REC) Y
[2022-08-08 11:19] LABS: Troponin-I HS 12 pg/mL (3.0-78.0)
[2022-08-08 13:45] LABS: Magnesium 2.1 mg/dL (1.6-2.6)
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
--- NOTE | 2022-08-08 14:07 | EKG12_ITS ---
Test Reason : CHEST TIGHTNESS Blood Pressure : / mmHG Vent. Rate : 060 BPM Atrial Rate : 000 BPM P-R Int : 000 ms QRS Dur : 114 ms QT Int : 436 ms P-R-T Axes : 000 028 041 degrees QTc Int : 436 ms Atrial fibrillation Low voltage QRS Incomplete right bundle branch block Abnormal ECG Confirmed by HANNA WHEAT, YOANNA ([id number]), editorial intern CATRINA BRITO ([id number]) on 08/10/2022 9:28:48 AM Referred By: MARISOL Confirmed By:YOANNA FERREIRA MD
[2022-08-08] MEDS: 0.9% Normal Saline 1,000 ML 100 ML IV ×2 (14:33→21:46)
--- NOTE | 2022-08-08 15:04 | EKG12_ITS ---
Test Reason : Blood Pressure : / mmHG Vent. Rate : 054 BPM Atrial Rate : 000 BPM P-R Int : 000 ms QRS Dur : 106 ms QT Int : 446 ms P-R-T Axes : 000 023 023 degrees QTc Int : 422 ms Atrial fibrillation with slow ventricular response Low voltage QRS (Limb Leads) Abnormal ECG Confirmed by ANGELICA WHEAT, HUMERA ([id number]), editor producer CATRINA BRITO ([id number]) on 08/11/2022 9:57:14 AM Referred By: MARIELA Confirmed By:HUMERA DOMINGUEZ MD
[2022-08-08 15:13] LABS: Troponin-I HS 10 pg/mL (3.0-78.0)
[2022-08-08 16:35] LABS: Bacteria 0 SEEN /hpf (None Seen); Color, Urine Yellow (Yellow); Glucose, Dipstick Normal (Normal); Ketone-Dipstick Negative (Negative); Leukocyte Esterase-Dipstick Negative /ul (Negative); Mucous, Urine 0 SEEN /hpf (<or=2+); Nitrite-Dipstick Negative (Negative); Occult Blood-Urine Negative /ul (Negative); Protein-Dipstick Negative (Negative); Red Blood Cells-Urine 0 SEEN /hpf (0-5); Specific Gravity, Urine 1.005 (1.002-1.030); Squamous Epithelial Cells - UA 0 SEEN /hpf (0-5); Urine Bilirubin Dipstick Negative (Negative); Urine Clarity Clear (Clear); Urine Urobilinogen Normal (Normal); White Blood Cells 0 SEEN /hpf (0-5)
[2022-08-08] MEDS: APIXABAN 5 MG TABLET PO (21:51)
[2022-08-08] MEDS: Hydrocortisone 10 MG Tablet 5 MG PO (21:52)
[2022-08-08] MEDS: Metoprolol Tartrate 25 MG Tablet 12.5 MG PO (21:53)
[2022-08-09 03:30] VITALS: BP 105/51; PULSE 57; RESP 16; TEMP 36.8; O2SAT 97
[2022-08-09] MEDS: Levothyroxine 137 MCG Tablet PO (05:41)
--- NOTE | 2022-08-09 05:55 | EKG12_ITS ---
Test Reason : AM EKG Blood Pressure : / mmHG Vent. Rate : 060 BPM Atrial Rate : 000 BPM P-R Int : 000 ms QRS Dur : 118 ms QT Int : 460 ms P-R-T Axes : 000 012 022 degrees QTc Int : 460 ms Atrial fibrillation Low voltage QRS Non-specific intra-ventricular conduction delay Abnormal ECG Confirmed by ANGELICA WHEAT, HUMERA ([id number]), associate editor CATRINA BRITO ([id number]) on 08/11/2022 9:54:16 AM Referred By: DR SIERRA Confirmed By:HUMERA DOMINGUEZ MD
[2022-08-09 06:38] LABS: Absolute Lymphocyte Count 1.51 X10^3/uL (0.83-4.51); Absolute Neutrophil Count 2.7 X10^3/uL (2.0-7.7); Basophil# 0.06 X10^3/uL; Basophil% 1.3 % (0-1); Eosinophil# 0.17 X10^3/uL; Eosinophils% 3.5 % (0-5); Hematocrit 33.6 % (40-54); Hemoglobin 11.8 g/dL (13.0-16.5); Lymphocyte # 1.51 X10^3/ul (0.83-4.51); Lymphocyte % 31.5 % (19-41); Mean Corp Hgb Conc 35.1 g/dL (32-36); Mean Corpuscular Hgb 34.6 pg (27.0-32.0); Mean Corpuscular Volume 98.5 fL (80-94); Mean Platelet Vol. 11.1 fl (6.2-12.0); Monocyte% 6.3 % (0-10); NRBC Flagged by Analyzer 0 % (0-5); Neutrophil # 2.71 X10^3/uL (2.7-7.7); Neutrophil % 56.6 % (47-70); Platelet Count 147 K/mm3 (150-450); RBC Distribution Width CV 15.6 % (11.6-14.6); RBC Distribution Width SD 56.9 fl (35.1-43.9); Red Blood Count 3.41 M/mm3 (4.6-6.2); White Blood Count 4.8 K/mm3 (4.4-11.0)
[2022-08-09 07:19] LABS: ALB/GLOB Ratio 1.2 RATIO (0.9-2.4); AST(SGOT) 83 U/L (15-37); Alanine Aminotransfer ALT/SGPT 49 U/L (16-61); Albumin, Serum 3.8 g/dL (3.2-5.0); Alkaline Phosphatase 69 U/L (45-117); Anion Gap 8 (5-15); BUN 25 mg/dL (7-18); BUN/Creat Ratio 14.7 RATIO (10-20); Calcium,Total 8.2 mg/dL (8.5-10.1); Chloride 100 mmol/L (98-107); Cholesterol 171 mg/dL (200); EST Glomerular Filtration Rate 42 mL/min (>60); Est Glom Filt Rate - Afr Amer 51 mL/min (>60); Globulin 3.3 g/dL (2.2-4.2); Glucose 79 mg/dL (74-106); High Density Lipoprotein 69 mg/dL; Potassium 4.6 mmol/L (3.5-5.1); Protein, Total 7.1 g/dL (6.4-8.2); Sodium Level 136 mmol/L (136-145); T4 Free Direct 0.29 ng/dL (0.76-1.46); Triglycerides 113 mg/dL; Very Low Density Lipoprotein 23 mg/dL (5-40)
[2022-08-09] MEDS: 0.9% Normal Saline 1,000 ML 100 ML IV (07:33)
[2022-08-09 08:03] VITALS: O2SAT 95
[2022-08-09 10:51] VITALS: BP 114/72; PULSE 62; RESP 17; TEMP 36.5; O2SAT 96
[2022-08-09] MEDS: Hydrocortisone 10 MG Tablet 5 MG PO (10:56)
[2022-08-09 10:57] VITALS: PULSE 63
[2022-08-09] MEDS: Metoprolol Tartrate 25 MG Tablet 12.5 MG PO (10:57)
--- NOTE | 2022-08-09 13:20 | STRESSREP ---
Stress Test Report Pharmacologic myocardial perfusion stress test. 76-year-old man with a history of chest pain Resting EKG demonstrates sinus bradycardia with a rate of 61 bpm. Resting blood pressure is 118/76 mmHg. 0.4 mg of regadenoson was infused per usual protocol followed by rapid intravenous saline flush injection. Continuous EKG monitoring was performed. The maximum heart rate was 83 bpm which was 57% of max impacted heart rate the maximum workload was 1 metabolic equivalent. At rest there were no ST or T wave changes noted to suggest ischemia and at peak infusion nonspecific ST changes were noted with did not meet the criteria for ischemia. Occasional premature ventricular complexes noted. No clinical angina is noted. The final blood pressure was 114/68 mmHg. Myocardial perfusion protocol. 14.9 mCi of technetium 99m sestamibi was injected at rest. 0.4 mg of regadenoson was infused per usual protocol. At peak infusion 45 mCi of technetium 99m sestamibi was injected stress images were obtained stress and rest images were reconstructed and compared in the short axis vertical long and horizontal long axis. Gated images were also obtained. Perfusion SPECT analysis: Review of the stress images demonstrate normal uptake of tracer noted in all areas of the myocardium. The resting images similar demonstrated normal uptake of tracer noted in all areas of the myocardium. No areas of reversibility are noted to suggest ischemia and no previous infarct is noted. Gated SPECT analysis: The gated ejection fraction is 68%. Conclusion: Normal pharmacologic myocardial perfusion stress test. Preserved ejection fraction.
--- NOTE | 2022-08-09 13:34 | DCINST_ITS ---
Discharge Instructions Diet Discharge Diet: Low fat / Low cholesterol and 2000 mg Sodium Diet Activity Discharge Activity: Return to Normal Activity Weight Bearing Status: Weight bearing as tolerated Follow Up Care Test Results: Test results from this visit will be discussed in further detail at your follow- up appointment, if applicable. Discharge Plan Admission Admit Date/Time: 08/08/22 13:16 Primary Reason for Your Visit: Acute chest pain Attending Provider: Sarah Osullivan Primary Care Provider: [facility],[place] Consulting Providers: Nhi Souza Instructions Additional Instructions / Restrictions: Follow-up with your primary care doctor within 1 week Discharge Orders/Prescriptions Prescriptions: Continued levothyroxine 137 MCG tablet 137 mcg PO DAILY hydrocortisone 5 MG tablet 10 mg PO DAILY cabergoline 0.5 MG tablet 0.5 mg PO MOWEFRSA calcium carbonate [Oyster Shell Calcium 500] 500 MG tablet 500 mg PO DAILY Centrum Silver Men 1 EACH tablet 1 tab PO DAILY hydrocortisone 5 mg Tablet 5 mg PO QHS vitamin E 268 mg (400 unit) Capsule 268 mg PO DAILY metoprolol tartrate 25 mg Tablet 12.5 mg PO BID cholecalciferol (vitamin D3) 25 mcg (1,000 unit) Tablet 25 mcg PO DAILY Eliquis 5 MG tablet 5 mg PO BID Discontinued diphenhydramine-acetaminophen [Tylenol PM Extra Strength] 25-500 mg Tablet 1 tab PO QHS PRN (Reason: Sleep) Referrals / Follow Up: [facility] [Primary Care Provider] - Disposition Disposition (needs filled in before D/C Order can be placed): Home, Self Care
--- NOTE | 2022-08-09 13:36 | PCM.DC.SUM ---
Providers Date of Admission: 08/08/22 Date of Discharge: 08/09/22 Primary Care Physician: [facility] Reason For Visit: CHEST PAIN Diagnosis Discharge Diagnosis (1) Chest pain: Status: Acute Code(s): R07.9 - Chest pain, unspecified Medications at Discharge Home Medications levothyroxine 137 mcg tablet 137 mcg PO DAILY THYROID 05/12/13 cabergoline 0.5 mg tablet 0.5 mg PO MOWEFRSA BRAIN TUMOR 10/26/18 calcium carbonate 500 mg calcium (1,250 mg) tablet (Oyster Shell Calcium 500) 500 mg PO DAILY SUPPLEMENT 10/26/18 hydrocortisone 5 mg tablet 10 mg PO DAILY 10/26/18 besbrktr-glc-dpgda acid 300 mcg-lycopene 600 mcg-lutein 300 mcg tablet (Centrum Silver Men) 1 tab PO DAILY SUPPLEMENT 10/26/18 apixaban 5 mg tablet (Eliquis) 5 mg PO BID blood thinner 08/08/22 cholecalciferol (vitamin D3) 25 mcg (1,000 unit) tablet 25 mcg PO DAILY supplement 08/08/22 hydrocortisone 5 mg tablet 5 mg PO QHS 08/08/22 metoprolol tartrate 25 mg tablet 12.5 mg PO BID blood pressure 08/08/22 vitamin E 268 mg (400 unit) capsule 268 mg PO DAILY supplement 08/08/22 Hospital Course Operations None Procedures Nuclear stress test Summary of Care Provided Minutes Spent on Discharge: 35 Hospital Course: 76-year-old male with multiple comorbidities significant for history of pituitary tumor status postresection, with resultant glucocorticoid deficiency, hypothyroidism, status post right lower extremity AKA who comes in with complaints of chest pain that happened at rest, midsternal, associated with shortness of breath. Patient's work-up in the ED showed A. fib, no acute ST changes. He was admitted to the progressive care unit, his troponins trended; they were unremarkable. Patient underwent stress test that was unremarkable. He denied any more chest pain at time of discharge. He was recommended to follow-up with his primary care doctor within 1 week. Physical Exam Narrative Physical exam: General: Alert, Oriented x3, Cooperative, ptosis of the left eye HEENT: Atraumatic Oral: Moist Mucosa Neck: Supple Lungs: Clear to auscultation Cardiovascular: HS I+II, regular, no murmurs Abdomen: Bowel Sounds Present, Soft, Non Tender Extremities: Right AKA, erythema of the stump, patient stated this was normal for him Skin: No rashes, No breakdown Neurological: Grossly intact Psych/Mental Status: Appropriate Weight / BMI Weight Weight: 121.46 kg Body Mass Index (BMI) 37.0 ABG / Lab / Microbiology Data Result Diagrams: 08/09/22 05:40 08/09/22 05:40 Laboratory: Laboratory Results - last 24 hr 08/08/22 11:00: Magnesium 2.1 08/08/22 14:48: Troponin I High Sens 10 08/08/22 15:25: Urine Color Yellow, Urine Clarity Clear, Urine pH 7.0, Ur Specific [place] 1.005, Urine Protein Negative, Urine Glucose (UA) Normal, Urine Ketones Negative, Urine Occult Blood Negative, Urine Nitrite Negative, Urine Bilirubin Negative, Urine Urobilinogen Normal, Ur Leukocyte Esterase Negative, Urine RBC 0 SEEN, Urine WBC 0 SEEN, Ur Squamous Epith Cells 0 SEEN, Urine Bacteria 0 SEEN, Urine Mucus 0 SEEN 08/09/22 05:40: WBC 4.8, RBC 3.41 L, Hgb 11.8 L, Hct 33.6 L, MCV 98.5 H, MCH 34.6 H, MCHC 35.1, RDW Std Deviation 56.9 H, RDW Coeff of Fariba 15.6 H, Plt Count 147 L, MPV 11.1, Immature Gran % (Auto) 0.800, Neut % (Auto) 56.6, Lymph % (Auto) 31.5, [place] % (Auto) 6.3, Eos % (Auto) 3.5, Baso % (Auto) 1.3 H, Absolute Neuts (auto) 2.7, Absolute Lymphs (auto) 1.51, Nucleated RBC % 0 08/09/22 05:40: Sodium 136, Potassium 4.6, Chloride 100, Carbon Dioxide 28.0, Anion Gap 8, BUN 25 H, Creatinine 1.70 H, Estim Creat Clear Calc 40.60, Est GFR (MDRD) Af Amer 51 L, Est GFR (MDRD) Non-Af 42 L, BUN/Creatinine Ratio 14.7, Glucose 79, Calcium 8.2 L, Total Bilirubin 1.20 H, AST 83 H, ALT 49, Alkaline Phosphatase 69, Total Protein 7.1, Albumin 3.8, Globulin 3.3, Albumin/Globulin Ratio 1.2, Triglycerides 113, Cholesterol 171, LDL Cholesterol 79, VLDL Cholesterol 23, HDL Cholesterol 69, TSH 35.30 H, Free T4 0.29 L Microbiology: Microbiology 08/08/22 13:25 Nasal Secretion SARS-CoV-2 & FLU Antigen (Rapid) - Final D/C Instructions Discharge Diet: Low fat / Low cholesterol and 2000 mg Sodium Diet Weight Bearing Status: Weight bearing as tolerated Meaningful Use Info Meaningful Use Diagnoses (Choose all that apply): None applicable Discharge Plan Admission Admit Date/Time: 08/08/22 13:16 Primary Reason for Your Visit: Acute chest pain Attending Provider: Sarah Osullivan Primary Care Provider: [facility],[place] Consulting Providers: Nhi Souza Instructions Additional Instructions / Restrictions: Follow-up with your primary care doctor within 1 week Discharge Orders/Prescriptions Prescriptions: Continued levothyroxine 137 MCG tablet 137 mcg PO DAILY hydrocortisone 5 MG tablet 10 mg PO DAILY cabergoline 0.5 MG tablet 0.5 mg PO MOWEFRSA calcium carbonate [Oyster Shell Calcium 500] 500 MG tablet 500 mg PO DAILY Centrum Silver Men 1 EACH tablet 1 tab PO DAILY hydrocortisone 5 mg Tablet 5 mg PO QHS vitamin E 268 mg (400 unit) Capsule 268 mg PO DAILY metoprolol tartrate 25 mg Tablet 12.5 mg PO BID cholecalciferol (vitamin D3) 25 mcg (1,000 unit) Tablet 25 mcg PO DAILY Eliquis 5 MG tablet 5 mg PO BID Discontinued diphenhydramine-acetaminophen [Tylenol PM Extra Strength] 25-500 mg Tablet 1 tab PO QHS PRN (Reason: Sleep) Referrals / Follow Up: [facility] [Primary Care Provider] - Disposition Disposition (needs filled in before D/C Order can be placed): Home, Self Care Charges/Coding Visit Charges Inpatient E&M: 38961 Disch Hosp >30min
[2022-08-09] MEDS: APIXABAN 5 MG TABLET PO (13:47)
[2022-08-09 15:00] VITALS: BP 104/57; PULSE 54; RESP 18; TEMP 36.8; O2SAT 95
== END 2022-08-09 13:36 | disposition home or self-care (01) ==
LOC: ED 13:21 → PCU 13:41
PROVIDERS: Admitting Provider Family Medicine; Emergency Provider Emergency Medicine; Visit Provider Internal Medicine
DX: R07.89 Other chest pain (principal); Z89.511 Acquired absence of right leg below knee; I48.0 Paroxysmal atrial fibrillation; N18.30 Chronic kidney disease, stage 3 unspecified; Z79.52 Long term (current) use of systemic steroids; Z87.891 Personal history of nicotine dependence; G47.33 Obstructive sleep apnea (adult) (pediatric); Z79.01 Long term (current) use of anticoagulants; D64.9 Anemia, unspecified; E03.9 Hypothyroidism, unspecified; I12.9 Hypertensive chronic kidney disease with stage 1 through stage 4 chronic kidney disease, or unspecified chronic kidney disease; Z79.899 Other long term (current) drug therapy; Z79.890 Hormone replacement therapy
CPT/HCPCS: 36415; 71045; 78452; 80048; 80053; 80061; 81001; 83735; 84439; 84443; 84484; 85025; 87428; 93005; 93017; 94762; 96360; 96361; 97166; 99221; 99252; 99285; A9500; J7030; A4216; G0378; G0463; J2785

== ENCOUNTER 2022-09-10 11:24 | Emergency (ER) | payer OTHER, SELFPAY ==
[2022-09-10 11:25] VITALS: BP 126/111; PULSE 79; RESP 22; TEMP 37.2; O2SAT 99; BMI 36.9
[2022-09-10 11:51] VITALS: O2SAT 96
--- NOTE | 2022-09-10 12:14 | EKG12_ITS ---
Test Reason : SOB Blood Pressure : / mmHG Vent. Rate : 082 BPM Atrial Rate : 000 BPM P-R Int : 000 ms QRS Dur : 114 ms QT Int : 414 ms P-R-T Axes : 000 047 032 degrees QTc Int : 483 ms Atrial fibrillation Incomplete right bundle branch block Prolonged QT Abnormal ECG Confirmed by HANNA WHEAT, YOANNA ([id number]), editor dictionary CATRINA BRTIO ([id number]) on 09/13/2022 1:52:55 PM Referred By: Confirmed By:YOANNA FERREIRA MD
[2022-09-10 12:42] LABS: Absolute Lymphocyte Count 1.25 X10^3/uL (0.83-4.51); Absolute Neutrophil Count 1.6 X10^3/uL (2.0-7.7); Basophil# 0.05 X10^3/uL; Basophil% 1.5 % (0-1); Eosinophil# 0.13 X10^3/uL; Eosinophils% 3.8 % (0-5); Hematocrit 31.3 % (40-54); Hemoglobin 11.5 g/dL (13.0-16.5); Lymphocyte # 1.25 X10^3/ul (0.83-4.51); Lymphocyte % 36.3 % (19-41); Mean Corp Hgb Conc 36.7 g/dL (32-36); Mean Corpuscular Hgb 35.8 pg (27.0-32.0); Mean Corpuscular Volume 97.5 fL (80-94); Monocyte# 0.39 X10^3/uL; Monocyte% 11.3 % (0-10); NRBC Flagged by Analyzer 0 % (0-5); Neutrophil # 1.62 X10^3/uL (2.7-7.7); Neutrophil % 47.1 % (47-70); Platelet Count 247 K/mm3 (150-450); RBC Distribution Width CV 13.8 % (11.6-14.6); RBC Distribution Width SD 49.6 fl (35.1-43.9); Red Blood Count 3.21 M/mm3 (4.6-6.2); White Blood Count 3.4 K/mm3 (4.4-11.0)
--- NOTE | 2022-09-10 12:55 | RAD_ITS ---
STUDY: X-RAY CHEST REASON FOR EXAM: Male, 76 years old. Dyspnea TECHNIQUE: AP and lateral views of the chest. COMPARISON: Comparison is made with prior study dated 08/08/2022. FINDINGS: EKG electrodes are seen. Mild increased markings at the lung bases slightly worse on the right side. This is suggestive of a mild basilar scarring. There is no demonstrated pleural abnormality. Normal size heart. Normal mediastinum and jami. Normal visualized pulmonary arteries. There is atherosclerotic tortuosity of the aortic arch and descending thoracic aorta. There are diffuse degenerative changes of the visualized thoracic spine. There is degenerative osteoarthritis of the bilateral shoulders. There is no demonstrated abnormality of the visualized soft tissue structures of the upper abdomen. RAD/Chest PA and Lateral IMPRESSION: Findings suggestive of a mild degree of bibasilar scarring slightly more prominent at the right lung base. Electronically Signed: Augusto Youngblood MD at 13:14 EST ,
[2022-09-10 13:06] LABS: Anion Gap 5 (5-15); BUN 25 mg/dL (7-18); BUN/Creat Ratio 17.5 RATIO (10-20); Calcium,Total 8.9 mg/dL (8.5-10.1); Chloride 97 mmol/L (98-107); Creatinine, Serum 1.43 mg/dL (0.70-1.30); EST Glomerular Filtration Rate 51 mL/min (>60); Est Glom Filt Rate - Afr Amer 62 mL/min (>60); Estimated Creatinine Clearance 48.27 ml/min; Glucose 92 mg/dL (74-106); Potassium 4.9 mmol/L (3.5-5.1); Sodium Level 127 mmol/L (136-145); Troponin-I HS 9 pg/mL (3.0-78.0)
[2022-09-10 13:31] LABS: Lactic Acid 0.5 mmol/L (0.4-1.9)
[2022-09-10 13:38] LABS: D-Dimer Quantitative (DVT/PE) < 0.27 FEU/ug/m (0.27-0.49)
--- NOTE | 2022-09-10 15:23 | ED.VIS.DYS ---
HPI History of Present Illness Chief Complaint: Shortness of Breath Detail of Chief Complaint: Shortness of breath since discharge from hospital in July Informant: patient and spouse/S.O. Onset/Context/Timing Onset: Weeks Context: gradual Timing: Continuous Quality: Positive for Dyspnea on exertion; Negative for Orthopnea, PND or Wheezing Current Severity: Mild Maximum Severity: Moderate Worsened by: Exertion and Coughing; Not Worsened By Lying flat Relieved by: Nothing Associated Symptoms cough; Negative for rhinorrhea, post nasal drip, ear pain, fever, sore throat, subjective, chills, sweats, clear sputum, white sputum, yellow sputum or green sputum Chest Pain: Positive for None Narrative Narrative: Patient is a 76-year-old male who was admitted in July. He states he has been short of breath since time of discharge. The cause of his chest pain was unknown. He denies history of PE or DVT. He is on long-term anticoagulant. ER record from admission in July was reviewed as well as discharge summary. Hospital course was uneventful. Patient has a slight nonproductive cough. He denies fever, chills night sweats. He has mild nasal congestion which is chronic. He denies ear pain or drainage. He denies sore throat. He denies orthopnea or PND. He had PND with last admission. He denies any chest discomfort with this presentation. He denies leg pain. He does endorse chronic swelling. PE Risk Factors: Negative for Cancer, OCP + Smoking + > 35, Prior DVT or PE, Recent immobilization, Recent surgery or Recent travel Prior similar symptoms: No Recent Illness/Hospitalization: Yes [facility] Medical History YUDI (acute kidney injury) Alcohol use Ambulates with cane Atrial fibrillation with RVR Cardiology follow-up encounter Change in bowel habits Constipation Dysphagia Early satiety Former smoker Glucocorticoid deficiency Headache Heartburn History of echocardiogram History of steroid therapy History of stress test HTN (hypertension) Hypothyroidism Nausea Pituitary tumor Sepsis SIRS (systemic inflammatory response syndrome) Thyroid disease URI (upper respiratory infection) Wears glasses Weight loss Home Medications levothyroxine 137 mcg tablet 137 mcg PO DAILY THYROID 05/12/13 [History Last Taken 08/08/22 05:00] cabergoline 0.5 mg tablet 0.5 mg PO MOWEFRSA BRAIN TUMOR 10/26/18 [History Last Taken 08/07/22] calcium carbonate 500 mg calcium (1,250 mg) tablet (Oyster Shell Calcium 500) 500 mg PO DAILY SUPPLEMENT 10/26/18 [History Last Taken 08/08/22] hydrocortisone 5 mg tablet 10 mg PO DAILY 10/26/18 [History Last Taken 08/08/22] kgkzodfz-lfi-quowf acid 300 mcg-lycopene 600 mcg-lutein 300 mcg tablet (Centrum Silver Men) 1 tab PO DAILY SUPPLEMENT 10/26/18 [History Last Taken 08/08/22] apixaban 5 mg tablet (Eliquis) 5 mg PO BID blood thinner 08/08/22 [History Last Taken 08/08/22] cholecalciferol (vitamin D3) 25 mcg (1,000 unit) tablet 25 mcg PO DAILY supplement 08/08/22 [History Last Taken 08/08/22] hydrocortisone 5 mg tablet 5 mg PO QHS 08/08/22 [History Last Taken 08/07/22] metoprolol tartrate 25 mg tablet 12.5 mg PO BID blood pressure 08/08/22 [History Last Taken 08/08/22] vitamin E 268 mg (400 unit) capsule 268 mg PO DAILY supplement 08/08/22 [History Last Taken 08/08/22] Allergy/AdvReac Type Severity Reaction Status Date / Time coconut Allergy Rash Verified 09/10/22 11:25 pineapple Allergy Rash Verified 09/10/22 11:25 omeprazole [From Prilosec] AdvReac Upset Verified 09/10/22 11:25 Stomach Family History Mother Cervical cancer Diabetes Father Diabetes Heart disease Surgical History History of brain surgery (~2006) History of colonoscopy (04/20/06) History of right lower limb amputation (~01/2003) Social History household members: spouse Smoking Status: Former smoker how long ago did patient quit smoking: Smoked in service, [id number], 1 ppd until quit. alcohol intake: never substance use type: does not use ROS ROS ED Constitutional Constitutional ED: Denies chills, fever(s), sweats or weight loss Eyes Eyes: Denies blurry vision, change in vision or diplopia ENT ENT ED: Reports rhinorrhea; Denies ear pain or sore throat Cardiovascular Cardiovascular: Denies chest pain, orthopnea, palpitations, paroxysmal nocturnal dyspnea or racing heartbeat Respiratory/Chest Respiratory/Chest: Reports cough, dyspnea and dyspnea on exertion; Denies orthopnea or paroxysmal nocturnal dyspnea Gastrointestinal Gastrointestinal: Denies abdominal pain, constipation, diarrhea, melena, nausea or vomiting Genitourinary Genitourinary ED: Denies dysuria, hematuria or urinary frequency Musculoskeletal Musculoskeletal: Denies arthralgias, back pain, myalgias or neck pain Integumentary Denies abscess or rash Neurologic Neurologic: Denies headache(s), paresthesias or weakness Psychiatric Psychiatric: Denies anxiety or depression Endocrine Endocrinology: Denies cold intolerance or heat intolerance Hematologic/Lymphatic Hematologic/Lymphatic: Denies easy bleeding or easy bruising Allergic/Immunologic Allergic/Immunologic ED: Denies mouth swelling or tongue swelling EXAM Physical Exam Const Vital Signs: 09/10/22 11:25 09/10/22 11:51 09/10/22 15:57 Temperature 98.9 F Temperature Source Temporal Pulse Rate 79 79 Respiratory Rate 22 H 20 H Respiratory Effort Normal Respiratory Depth Shallow Respiratory Pattern Normal Blood Pressure 126/111 H 117/71 Blood Pressure Mean 116 86 Pulse Ox 99 98 Oxygen Delivery Method Room Air Room Air Room Air Positive well nourished, well developed and obese Constitutional Narrative: Patient appears somnolent. His eyes are closed. He has to be spoken to repeatedly to open his eyes. General Appearance ED: well developed, NAD and pallor Nutritional Appearance: obese HEENT Reports moist mucous membranes HEENT Narrative: Head is atraumatic normocephalic. Ears normal. Nares patent. Posterior pharynx is normal. Eyes PERRL and EOMs intact bilaterally Eyes Narrative: Patient has floppy eyelid syndrome. General Eye ED: Negative for pale conjunctiva or scleral icterus Neck no lymphadenopathy, supple, no meningeal signs and no JVD Resp normal respiratory effort and clear to auscultation bilaterally Cardio regular rate, S1 normal heart sound, S2 normal heart sound and no murmurs Rhythm: abnormal rhythm irregularly irregular GI non-tender, non-distended and no masses Auscultation: normoactive bowel sounds Palpation: soft Back/Spine no CVA tenderness Extremity normal to inspection Extremity Narrative: There is pitting edema bilaterally. There is no discoloration or asymmetry. There is no palpable cords, leg vein distention or tenderness along the distribution deep venous system. General Extremety ED: Yes edema; Negative for tenderness General Extremity: edema Neuro oriented x3, CN's II-XII intact bilaterally and no sensory deficits noted [place] Coma Scale: document GCS findings Spontaneous Obeys Commands Oriented 15 Sensorium / Orientation: Negative for alert Speech: speech normal Psych Mood & Affect: depressed Thought Process: normal thought process Skin no wounds and skin turgor normal General Skin Exam: pallor; Negative for jaundice Lesions: no lesions MDM MDM MDM Narrative Medical decision making narrative: Patient was informed the cause of his shortness of breath is unknown. He was instructed to follow-up with his primary care doctor for outpatient testing to evaluate for obstructive sleep apnea. With persistent dyspnea and negative cardiac work-up will obtain D-dimer to evaluate for PE since he is not PERC negative. Clinically he does not have a DVT. CBC was obtained assess white count and rule out anemia. Basic metabolic panel was obtained to assess renal function as well as CO2 anion gap. Lactate was ordered. EKG was obtained to evaluate for ischemia or right heart strain to suggest PE. Lab Data Attestation: I reviewed the patient's lab results. Lab results narrative: Patient is neutropenic and anemic. He has been neutropenic and anemic in the past. Basic metabolic panel with sodium 127. He does have history of hyponatremia. Creatinine is elevated 1.43 with a GFR 51. D-dimer is less than 0.27 lactate is normal at 0.5. With a normal D-dimer PE DVT has been ruled out. Because patient is somnolent and has floppy eyelid syndrome concern he may be hypercapnic from undiagnosed and untreated sleep apnea. ABG is unremarkable. pH of 7.38, PCO2 36.4, PO2 79.2, bicarb 21.9 with a base excess of -3.2 and a 95.5% saturation on room air. Labs: Laboratory Results - last 24 hr 09/10/22 09/10/22 09/10/22 11:50 11:50 11:50 WBC 3.4 L RBC 3.21 L Hgb 11.5 L Hct 31.3 L MCV 97.5 H MCH 35.8 H MCHC 36.7 H RDW Std Deviation 49.6 H RDW Coeff of Fariba 13.8 Plt Count 247 MPV 10.0 Immature Gran % (Auto) 0.000 Neut % (Auto) 47.1 Lymph % (Auto) 36.3 [place] % (Auto) 11.3 H Eos % (Auto) 3.8 Baso % (Auto) 1.5 H Absolute Neuts (auto) 1.6 L Absolute Lymphs (auto) 1.25 Nucleated RBC % 0 D-Dimer Quant (PE/DVT) Cancelled Sodium 127 L Potassium 4.9 Chloride 97 L Carbon Dioxide 25.0 Anion Gap 5 BUN 25 H Creatinine 1.43 H Estim Creat Clear Calc 48.27 Est GFR (MDRD) Af Amer 62 Est GFR (MDRD) Non-Af 51 L BUN/Creatinine Ratio 17.5 Glucose 92 Lactic Acid Calcium 8.9 Troponin I High Sens 9 09/10/22 09/10/22 12:45 13:16 WBC RBC Hgb Hct MCV MCH MCHC RDW Std Deviation RDW Coeff of Fariba Plt Count MPV Immature Gran % (Auto) Neut % (Auto) Lymph % (Auto) [place] % (Auto) Eos % (Auto) Baso % (Auto) Absolute Neuts (auto) Absolute Lymphs (auto) Nucleated RBC % D-Dimer Quant (PE/DVT) < 0.27 L Sodium Potassium Chloride Carbon Dioxide Anion Gap BUN Creatinine Estim Creat Clear Calc Est GFR (MDRD) Af Amer Est GFR (MDRD) Non-Af BUN/Creatinine Ratio Glucose Lactic Acid 0.5 Calcium Troponin I High Sens Radiography Chest X-Ray - ED: 2 View and Read by ED Physician (There is no evidence of pneumothorax, effusion or infiltrate. Patient does have atelectasis noted. Cardiac silhouette and size unremarkable. [place] structures unremarkable. Perihilar regions unremarkable.) Diagnostic Testing: Clinical Impression(s) from Imaging Studies Chest X-Ray 09/10/22 12:55 IMPRESSION: Findings suggestive of a mild degree of bibasilar scarring slightly more prominent at the right lung base. Electronically Signed: Augusto Youngblood MD at 13:14 EST , EKG Initial EKG: Attestation: I personally reviewed and interpreted this EKG as follows: Interpretation: Atrial Fibrillation (Rate is 82. QRS complex is 114 ms. There is evidence of right bundle branch block. QT intervals prolonged. [place] is) Discharge Plan Triage Chief Complaint: Shortness of Breath ED Provider: Aakash Espinosa Dx/Rx/DC Orders Clinical Impression: Dyspnea, Pituitary tumor, Chronic anticoagulation, HTN (hypertension), Hypothyroidism, Glucocorticoid deficiency, Floppy eyelid syndrome of both eyes, Chronic a-fib, Traumatic amputation of right leg Prescriptions: No Action levothyroxine 137 MCG tablet 137 mcg PO DAILY hydrocortisone 5 MG tablet 10 mg PO DAILY cabergoline 0.5 MG tablet 0.5 mg PO MOWEFRSA calcium carbonate [Oyster Shell Calcium 500] 500 MG tablet 500 mg PO DAILY Centrum Silver Men 1 EACH tablet 1 tab PO DAILY hydrocortisone 5 mg Tablet 5 mg PO QHS vitamin E 268 mg (400 unit) Capsule 268 mg PO DAILY metoprolol tartrate 25 mg Tablet 12.5 mg PO BID cholecalciferol (vitamin D3) 25 mcg (1,000 unit) Tablet 25 mcg PO DAILY Eliquis 5 MG tablet 5 mg PO BID [facility] Provider: [facility] Referrals: [facility] [Primary Care Provider] - 1-2 Weeks Activity Restrictions/Additional Instructions: You need to follow-up with your doctor at the [facility] for sleep study to determine if you have obstructive sleep apnea. Disposition Disposition: Home, Self Care
[2022-09-10 15:57] VITALS: BP 117/71; PULSE 79; RESP 20; O2SAT 98
[2022-09-10 16:06] LABS: Allen Test Positive; Base Excess -3 mmol/L (-2 to +2); Bicarbonate 21.9 mmol/L (22-26); Blood Gas Specimen Type ART; O2 Delivery Device Room Air; PO2 79 mmHG (75-100); SITE L Brach; SO2 96 % (95-99); Total Carbon Dioxide 23 mmol/L; pCO2 36.4 mmHg (35-45); pH 7.39 (7.35-7.45)
== END 2022-09-10 16:30 | disposition home or self-care (01) ==
PROVIDERS: Emergency Provider Emergency Medicine; Visit Provider Emergency Medicine
DX: R06.02 Shortness of breath (principal); Z89.611 Acquired absence of right leg above knee; I48.20 Chronic atrial fibrillation, unspecified; E27.49 Other adrenocortical insufficiency; Z79.01 Long term (current) use of anticoagulants; I10 Essential (primary) hypertension; Z87.891 Personal history of nicotine dependence; E03.9 Hypothyroidism, unspecified; D49.7 Neoplasm of unspecified behavior of endocrine glands and other parts of nervous system; H02.89 Other specified disorders of eyelid; E66.9 Obesity, unspecified
CPT/HCPCS: 36600; 71046; 80048; 82803; 83605; 84484; 85025; 85379; 93005; 99284

== ENCOUNTER 2024-02-13 10:24 | Observation (INO) | payer OTHER, SELFPAY ==
[2024-02-13] VITALS (21 sets, daily range): BP systolic 93–134; BP diastolic 63–115; PULSE 55–125; RESP 14–32; TEMP 36.3–36.7; O2SAT 89–100; BMI 38.9; BMI 38.1
--- NOTE | 2024-02-13 11:14 | EKG12_ITS ---
Test Reason : SOB Blood Pressure : / mmHG Vent. Rate : 125 BPM Atrial Rate : 000 BPM P-R Int : 000 ms QRS Dur : 102 ms QT Int : 276 ms P-R-T Axes : 000 -37 051 degrees QTc Int : 398 ms Atrial fibrillation with rapid ventricular response Left axis deviation Possible Lateral infarct , age undetermined Abnormal ECG Confirmed by HANNA WHEAT, YOANNA ([id number]), editorial cartoonist LAMBERT OSBORNE ([id number]) on 02/14/2024 8:33:50 AM Referred By: SAY Confirmed By:YOANNA FERREIRA MD
--- NOTE | 2024-02-13 11:15 | ED.VIS.DYS ---
HPI History of Present Illness Chief Complaint: Shortness of Breath Informant: patient and EMS Narrative Narrative: 78-year-old male arriving by EMS with a chief complaint of shaking nausea and fast heart rate. Patient states that he woke up this morning feeling not as good as he normally does but felt like I needed to get something to eat. It is common that on Mondays he goes out to breakfast he went out to breakfast ate his normal food. He began to feel very shaky short of breath feeling his heart beating fast tingling in his arms and nausea. Patient states he has not yet had fever. Patient states he has a history of atrial fibrillation but is not normally a sinus rhythm. He is on Eliquis twice a day has not missed any doses. He also takes metoprolol. He did take his morning medications. [facility] Medical History Wears glasses Alcohol use History of steroid therapy Thyroid disease Ambulates with cane Heartburn Former smoker History of stress test History of echocardiogram Cardiology follow-up encounter Change in bowel habits Nausea Weight loss Early satiety Constipation Dysphagia SIRS (systemic inflammatory response syndrome) Glucocorticoid deficiency YUDI (acute kidney injury) Atrial fibrillation with RVR Sepsis URI (upper respiratory infection) Hypothyroidism HTN (hypertension) Pituitary tumor Headache Home Medications ?Medication ?Instructions ?Recorded ?Last Taken ?Type levothyroxine 137 mcg tablet 137 mcg PO DAILY THYROID 05/12/13 08/08/22 05:00 History calcium carbonate (Oyster Shell 500 mg PO DAILY SUPPLEMENT 10/26/18 08/08/22 History Calcium 500) hydrocortisone 5 mg tablet 10 mg PO DAILY 10/26/18 08/08/22 History beilqcde-zq-rhltx 300 mcg-K 60 1 tab PO DAILY SUPPLEMENT 10/26/18 08/08/22 History mcg-lycop 600 mcg-lutein 300 mcg tablet (Centrum Silver Men) apixaban 5 mg tablet (Eliquis) 5 mg PO BID blood thinner 08/08/22 08/08/22 History cholecalciferol (vitamin D3) 25 25 mcg PO DAILY supplement 08/08/22 08/08/22 History mcg (1,000 unit) tablet hydrocortisone 5 mg tablet 5 mg PO QHS 08/08/22 08/07/22 History metoprolol tartrate 25 mg tablet 12.5 mg PO BID blood pressure 08/08/22 08/08/22 History vitamin E 268 mg (400 unit) capsule 268 mg PO DAILY supplement 08/08/22 08/08/22 History Allergy/AdvReac Type Severity Reaction Status Date / Time coconut Allergy Rash Verified 02/13/24 10:25 pineapple Allergy Rash Verified 02/13/24 10:25 omeprazole (From Prilosec) AdvReac Upset Verified 02/13/24 10:25 Stomach Family History Mother Cervical cancer Diabetes Father Diabetes Heart disease Surgical History History of colonoscopy (04/20/06) History of right lower limb amputation (~01/2003) History of brain surgery (~2006) Social History household members: spouse Smoking Status: Former smoker how long ago did patient quit smoking: Smoked in service, [id number], 1 ppd until quit. alcohol intake: never substance use type: does not use ROS ROS ED ROS Narrative Shakiness Constitutional Constitutional ED: Reports chills; Denies weight loss Eyes Eyes: Denies change in vision or diplopia ENT ENT ED: Denies ear pain, rhinorrhea or sore throat Cardiovascular Cardiovascular: Reports palpitations and racing heartbeat; Denies chest pain or orthopnea Respiratory/Chest Respiratory/Chest: Reports dyspnea; Denies cough or orthopnea Gastrointestinal Gastrointestinal: Reports nausea and vomiting; Denies abdominal pain or diarrhea Genitourinary Genitourinary ED: Denies dysuria, hematuria or urinary frequency Musculoskeletal Musculoskeletal: Denies arthralgias or myalgias Integumentary Denies abscess or rash Neurologic Neurologic: Reports paresthesias RUE and LUE; Denies headache(s) or weakness Psychiatric Psychiatric: Denies anxiety, depression, suicidal ideation or suicidal thoughts Endocrine Endocrinology: Denies polydipsia, polyphagia or polyuria Allergic/Immunologic Allergic/Immunologic ED: Denies mouth swelling, tongue swelling or urticaria EXAM Physical Exam Const Vital Signs: 02/13/24 10:26 02/13/24 10:31 02/13/24 10:32 Temperature 97.4 F L 97.4 F L Temperature Source Temporal Temporal Pulse Rate 123 H 123 H Respiratory Rate 32 H 32 H Respiratory Effort Blood Pressure 134/115 H 134/115 H Blood Pressure Mean 121 121 Pulse Ox 89 89 96 Oxygen Delivery Method Room Air Room Air Nasal Cannula Oxygen Flow Rate (L/min) 4 02/13/24 11:25 02/13/24 12:00 02/13/24 12:49 Temperature Temperature Source Pulse Rate 99 97 Respiratory Rate 18 30 H Respiratory Effort Normal Blood Pressure 110/72 113/99 H Blood Pressure Mean 84 103 Pulse Ox 97 100 Oxygen Delivery Method Room Air Room Air Oxygen Flow Rate (L/min) 02/13/24 13:00 02/13/24 14:00 02/13/24 14:30 Temperature Temperature Source Pulse Rate 95 99 97 Respiratory Rate 19 H 24 H 14 Respiratory Effort Blood Pressure 100/67 111/76 101/67 Blood Pressure Mean 78 85 79 Pulse Ox 100 99 100 Oxygen Delivery Method Nasal Cannula Oxygen Flow Rate (L/min) Positive well nourished, well developed and obese General Appearance ED: well developed and NAD Nutritional Appearance: obese HEENT Reports normocephalic, head/scalp atraumatic and moist mucous membranes Eyes PERRL and EOMs intact bilaterally Neck no lymphadenopathy, supple and no JVD Resp clear to auscultation bilaterally Resp Narrative: Patient appears to have slight dyspnea is not in any distress and speaks in full sentences Cardio no murmurs Rate: tachycardic Rhythm: abnormal rhythm irregularly irregular GI normal to inspection, nondistended, normoactive bowel sounds and non-tender Palpation: soft Back/Spine no CVA tenderness and normal ROM Extremity normal to inspection General Extremety ED: Negative for edema General Extremity: Negative for edema Neuro oriented x3 and CN's II-XII intact bilaterally Sensorium / Orientation: alert Motor Exam: strength 5/5 throughout Psych mental status grossly normal Mood & Affect: anxious; Negative for depressed or tearful Skin no rashes or lesions noted and no wounds MDM MDM MDM Narrative Medical decision making narrative: Differential diagnosis includes but not limited to vomiting bowel obstruction pancreatitis biliary disease pneumonia congestive heart failure cardiac dysrhythmias electrolyte abnormality viral syndrome My independent interpretation of the chest x-ray is no acute process. White count 6.8 with a hemoglobin of 17 platelet count is 223. INR 1.3 with a PTT of 32.6. Creatinine 1.57 with a BUN of 30. Total bilirubin 1.6 with a direct bilirubin 0.45 otherwise liver enzymes are normal. Troponin is 9 lipase 109. EKG shows A-fib with RVR. Patient received Zofran, metoprolol, and Solu-Cortef. He is chronically on hydrocortisone. Follow-up EKG shows A-fib with a ventricular rate of 101. Patient's had a large diarrheal vomiting. I wonder if he has a gastroenteritis.. His A-fib he states he is not normally present. However given his active vomiting illness hesitant to perform cardioversion. I think it is safer for the patient to continue his anticoagulant and provide rate control. Patient still not tolerating p.o. fluids very well I think is reasonable to observe him here in the hospital History & Record Review Discussion w/independent historian: EMS personnel, Patient and Family Lab Data Attestation: I reviewed the patient's lab results. Labs: Laboratory Results - last 24 hr 02/13/24 10:30 WBC 6.8 RBC 5.36 Hgb 17.0 H Hct 49.6 MCV 92.5 MCH 31.7 MCHC 34.3 RDW Std Deviation 45.0 H RDW Coeff of Fariba 13.4 Plt Count 223 MPV 10.6 Immature Gran % (Auto) 0.400 Neut % (Auto) 82.6 H Lymph % (Auto) 12.2 L [place] % (Auto) 2.5 Eos % (Auto) 1.9 Baso % (Auto) 0.4 Absolute Neuts (auto) 5.6 Absolute Lymphs (auto) 0.83 Nucleated RBC % 0 PT 16.3 H INR 1.3 APTT 32.6 Sodium 137 Potassium 4.3 Chloride 102 Carbon Dioxide 27.0 Anion Gap 8 BUN 30 H Creatinine 1.57 H Estim Creat Clear Calc 54.23 Est GFR (MDRD) Af Amer 56 L Est GFR (MDRD) Non-Af 46 L BUN/Creatinine Ratio 19.1 Glucose 90 Calcium 8.9 Magnesium 2.0 Total Bilirubin 1.60 H Direct Bilirubin 0.45 H AST 33 ALT 34 Alkaline Phosphatase 96 Troponin I High Sens 9 Total Protein 8.0 Albumin 4.0 Globulin 4.0 Lipase 109 H Radiography Diagnostic Testing: Clinical Impression(s) from Imaging Studies Chest X-Ray 02/13/24 11:19 IMPRESSION: Elevation of the left hemidiaphragm due to gaseous distention of the stomach. Electronically Signed: Augusto Youngblood MD at 12:25 EDT , EKG Initial EKG: Attestation: I personally reviewed and interpreted this EKG as follows: Comments: Atrial fibrillation with RVR ventricular rate of 125 bpm. No definitive features of ACS noted Follow-up EKG: Attestation: I personally reviewed and interpreted this EKG as follows: Comments: Atrial fibrillation with RVR ventricular rate of 101 bpm Management Discussion w/another healthcare provider: Hospitalist Discharge Plan Triage Chief Complaint: Shortness of Breath Other Complaint: Nausea/Vomiting ED Provider: Julito Avelar Dx/Rx/DC Orders Prescriptions: No Action levothyroxine 137 MCG tablet 137 mcg PO DAILY hydrocortisone 5 MG tablet 10 mg PO DAILY calcium carbonate [Oyster Shell Calcium 500] 500 MG tablet 500 mg PO DAILY Centrum Silver Men 1 EACH tablet 1 tab PO DAILY hydrocortisone 5 mg Tablet 5 mg PO QHS vitamin E 268 mg (400 unit) Capsule 268 mg PO DAILY metoprolol tartrate 25 mg Tablet 12.5 mg PO BID cholecalciferol (vitamin D3) 25 mcg (1,000 unit) Tablet 25 mcg PO DAILY Eliquis 5 MG tablet 5 mg PO BID [facility] [Primary Care Provider] - Print Language: [place]
--- NOTE | 2024-02-13 11:19 | RAD_ITS ---
STUDY: X-RAY CHEST REASON FOR EXAM: Male, 78 years old. Dyspnea TECHNIQUE: Single AP portable view of the chest. COMPARISON: Comparison is made with prior study dated September 10, 2022. FINDINGS: EKG electrodes are seen. There is elevation of the left hemidiaphragm with evidence of gaseous distention of the stomach. The lungs are clear and expanded. There is no demonstrated pleural abnormality. Normal size heart. Normal mediastinum and jami. Normal visualized pulmonary arteries. There is atherosclerotic tortuosity of the aortic arch and descending thoracic aorta. There are diffuse degenerative changes of the visualized thoracic spine. There is degenerative osteoarthritis of the bilateral shoulders. There is no demonstrated abnormality of the visualized soft tissue structures of the upper abdomen. RAD/Chest 1 View (Portable) IMPRESSION: Elevation of the left hemidiaphragm due to gaseous distention of the stomach. Electronically Signed: Augusto Youngblood MD at 12:25 EDT ,
[2024-02-13 11:26] LABS: Absolute Lymphocyte Count 0.83 X10^3/uL (0.83-4.51); Absolute Neutrophil Count 5.6 X10^3/uL (2.0-7.7); Basophil# 0.03 X10^3/uL; Basophil% 0.4 % (0-1); Eosinophil# 0.13 X10^3/uL; Eosinophils% 1.9 % (0-5); Hematocrit 49.6 % (40-54); Lymphocyte # 0.83 X10^3/ul (0.83-4.51); Lymphocyte % 12.2 % (19-41); Mean Corp Hgb Conc 34.3 g/dL (32-36); Mean Corpuscular Hgb 31.7 pg (27.0-32.0); Mean Corpuscular Volume 92.5 fL (80-94); Mean Platelet Vol. 10.6 fl (6.2-12.0); Monocyte# 0.17 X10^3/uL; Monocyte% 2.5 % (0-10); NRBC Flagged by Analyzer 0 % (0-5); Neutrophil # 5.59 X10^3/uL (2.7-7.7); Neutrophil % 82.6 % (47-70); Platelet Count 223 K/mm3 (150-450); RBC Distribution Width CV 13.4 % (11.6-14.6); Red Blood Count 5.36 M/mm3 (4.6-6.2); White Blood Count 6.8 K/mm3 (4.4-11.0)
[2024-02-13] MEDS: Ondansetron 4 MG/2 ML Vial IV ×2 (11:28→15:47)
[2024-02-13] MEDS: Metoprolol Tartrate 5 MG/5 ML Vial IV ×3 (11:30→16:50)
[2024-02-13 11:35] LABS: International Normalized Ratio 1.3; Partial Thromboplast Time 32.6 Seconds (24.1-36.2); Prothrombin Time (Protime)PT. 16.3 SECONDS (11.7-14.9)
[2024-02-13 11:50] LABS: AST(SGOT) 33 U/L (15-37); Alanine Aminotransfer ALT/SGPT 34 U/L (16-61); Alkaline Phosphatase 96 U/L (45-117); Anion Gap 8 (5-15); BUN 30 mg/dL (7-18); BUN/Creat Ratio 19.1 RATIO (10-20); Bilirubin, Direct 0.45 mg/dL (0.00-0.30); Calcium,Total 8.9 mg/dL (8.5-10.1); Chloride 102 mmol/L (98-107); Creatinine, Serum 1.57 mg/dL (0.70-1.30); EST Glomerular Filtration Rate 46 mL/min (>60); Est Glom Filt Rate - Afr Amer 56 mL/min (>60); Estimated Creatinine Clearance 54.23 ml/min; Glucose 90 mg/dL (74-106); Lipase 109 U/L (13-75); Potassium 4.3 mmol/L (3.5-5.1); Sodium Level 137 mmol/L (136-145); Troponin-I HS 9 pg/mL (3.0-78.0)
--- NOTE | 2024-02-13 14:35 | EKG12_ITS ---
Test Reason : REPEAT Blood Pressure : / mmHG Vent. Rate : 101 BPM Atrial Rate : 000 BPM P-R Int : 000 ms QRS Dur : 096 ms QT Int : 324 ms P-R-T Axes : 000 -05 047 degrees QTc Int : 420 ms Atrial fibrillation with rapid ventricular response Abnormal ECG Confirmed by HANNA WHEAT, YOANNA ([id number]), development editor LAMBERT OSBORNE ([id number]) on 02/14/2024 8:34:47 AM Referred By: Confirmed By:YOANNA FERREIRA MD
[2024-02-13] MEDS: Hydrocortisone Sod Succinate 100 MG/2 ML Vial IV (15:36)
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
[2024-02-13] MEDS: 0.9% Normal Saline (1000mL) 1,000 ML 150 ML IV (15:50)
--- NOTE | 2024-02-13 16:31 | NURSING ---
UNABLE TO REACH [facility]
[2024-02-13 16:37] LABS: Procalcitonin 1.86 ng/mL (0.00-0.09)
--- NOTE | 2024-02-13 16:39 | NURSING ---
CALLED [facility], TALKED TO AWILDA.
--- NOTE | 2024-02-13 17:06 | NURSING ---
FAXED CHART TO [phone]
--- NOTE | 2024-02-13 17:50 | ECHOCS_ITS ---
Reason For Study: ATRIAL FIB/FLUTTER Procedure This was a 2D Doppler, Color Flow transthoracic echocardiogram. The study was technically difficult. Contrast injection was performed. Exam performed portable in patient room. Left Ventricle Normal LV size. Left ventricular systolic function is normal. The left ventricular ejection fraction is 65 %. No regional wall motion abnormalities noted. Right Ventricle Normal RV size. Normal systolic function. Atria Normal left atrium. Normal right atrium. Mitral Valve Mitral valve not well visualized. Tricuspid Valve The tricuspid valve is not well visualized. Aortic Valve The aortic valve is not well visualized. Mild (1+) eccentric aortic valve insufficiency. Pulmonic Valve The pulmonic valve is not well visualized. Great Vessels Mildly dilated aortic root. The pulmonary artery is normal size. Inferior vena cava collapse with respiration. Pericardium/Pleural No pericardial effusion. Medication Diluted definity 2ml given slow IV push to enhance endocardial definition. MMode/2D Measurements & Calculations RVDd: 3.9 cm LVOT diam: 2.4 cm Ao root diam: 4.4 cm LVOT area: 4.7 cm2 LAV(MOD-bp): 91.1 ml LVAd ap4: 29.7 cm2 LVAd ap2: 34.5 cm2 LAV(MOD-bp) Indexed: 37.8 ml/m2 LVLd ap4: 7.8 cm LVLd ap2: 8.1 cm LAV(MOD-sp2): 97.9 ml EDV(MOD-sp4): 89.7 ml EDV(MOD-sp2): 119.1 ml LAV(MOD-sp4): 64.5 ml EDV(sp4-el): 95.4 ml EDV(sp2-el): 125.3 ml LVAs ap4: 15.5 cm2 LVAs ap2: 19.4 cm2 LVLs ap4: 6.0 cm LVLs ap2: 6.6 cm ESV(MOD-sp4): 32.3 ml ESV(MOD-sp2): 47.9 ml ESV(sp4-el): 33.9 ml ESV(sp2-el): 48.9 ml EF(MOD-sp4): 64.0 % EF(MOD-sp2): 59.8 % EF(sp4-el): 64.4 % SV(MOD-sp4): 57.5 ml SV(MOD-sp2): 71.2 ml SV(sp4-el): 61.5 ml LA A4 area: 21.6 cm2 LA dimension(2D): 4.6 cm RA A4 area: 18.1 cm2 TAPSE: 1.2 cm Time Measurements MV dec time: 0.16 sec Doppler Measurements & Calculations MV E max lane: 98.6 cm/sec Lat Peak E' Lane: 10.5 cm/sec Med Peak E' Lane: 10.1 cm/sec E/E' lat: 9.4 E/E' med: 9.7 Ao V2 max: 140.3 cm/sec AI max lane: 335.8 cm/sec LV V1 max: 118.9 cm/sec Ao max P.9 mmHg AI max P.1 mmHg LV V1 max P.7 mmHg Ao V2 mean: 103.9 cm/sec AI dec slope: 191.3 cm/sec2 LV V1 mean P.4 mmHg Ao mean P.7 mmHg AI P1/2t: 514.1 msec LV V1 mean: 89.0 cm/sec Ao V2 VTI: 25.1 cm LV V1 VTI: 21.7 cm AV (velocity ratio): 0.86 JUAN(I,D): 4.0 cm2 JUAN(V,D): 4.0 cm2 SV(LVOT): 101.1 ml PA V2 max: 73.9 cm/sec TR max lane: 225.3 cm/sec PA max PG (full): 1.2 mmHg TR max P.3 mmHg ECHO/Echo Complete W/ Contrast Interpretation Summary Normal LV size. Left ventricular systolic function is normal. The left ventricular ejection fraction is 65 %. Mildly dilated aortic root. Mild (1+) eccentric aortic valve insufficiency. Contrast injection was performed. Ordering Physician: Nhi Souza Performed By: Kellie Munguia RDCS and Student
--- NOTE | 2024-02-13 18:03 | NURSING ---
wt obtained with prothesis on.
--- NOTE | 2024-02-13 18:06 | EKG12_ITS ---
Test Reason : Blood Pressure : / mmHG Vent. Rate : 121 BPM Atrial Rate : 127 BPM P-R Int : 000 ms QRS Dur : 106 ms QT Int : 310 ms P-R-T Axes : 000 -69 047 degrees QTc Int : 440 ms Atrial fibrillation Left axis deviation Abnormal ECG When compared with ECG of 13-FEB-2024 14:39, MANUAL COMPARISON REQUIRED, DATA IS UNCONFIRMED Confirmed by HANNA WHEAT, YOANNA ([id number]), film editor supervisor CATRINA BRITO ([id number]) on 02/14/2024 9:03:48 AM Referred By: MARIELA Confirmed By:YOANNA FERREIRA MD
[2024-02-13] MEDS: Metoprolol Tartrate 25 MG Tablet PO (18:53)
[2024-02-13] MEDS: 0.9% Normal Saline (1000mL) 1,000 ML 100 ML IV (18:58)
[2024-02-13 18:59] LABS: Troponin-I HS 22 pg/mL (3.0-78.0)
[2024-02-13] MEDS: proCHLORPERazine 10 MG/2 ML Vial 5 MG IV (19:00)
[2024-02-13] MEDS: Pantoprazole Sodium 40 MG in 0.9% Normal Saline (100mL MB+) 100 ML 330 MG IV (20:27)
[2024-02-13] MEDS: Hydrocortisone 10 MG Tablet PO (20:28)
[2024-02-13] MEDS: APIXABAN 5 MG TABLET PO (20:28)
[2024-02-13 21:10] LABS: Troponin-I HS 21 pg/mL (3.0-78.0)
[2024-02-14] VITALS (7 sets, daily range): BP systolic 82–135; BP diastolic 59–109; PULSE 80–90; RESP 17–23; TEMP 36.6–36.9; O2SAT 95–99; BMI 38.1
--- NOTE | 2024-02-14 01:23 | CPS ---
Pt states that will bring in home CPAP
[2024-02-14 01:33] LABS: Troponin-I HS 20 pg/mL (3.0-78.0)
--- NOTE | 2024-02-14 03:40 | PCM.HOSP.N ---
Hospitalist Note Patient positive for Norovirus. Enteric contact precautions already in place. Will continue with supportive care.
[2024-02-14] MEDS: 0.9% Normal Saline (1000mL) 1,000 ML 100 ML IV (05:28)
[2024-02-14] MEDS: Levothyroxine 137 MCG Tablet PO (05:28)
--- NOTE | 2024-02-14 07:50 | PCM.PN.HOSP ---
Reason for Visit Reason for Visit: Diagnoses Unspecified atrial fibrillation (02/13/24) Subjective Subjective Patient is a 78-year-old gentleman admitted with nausea and palpitations. Was found to be in A-fib with RVR admitted to monitored bed. Hospital stay complicated by diarrhea. Objective Data Objective Data Vital Signs: Vital Signs Temp Pulse Resp BP Pulse Ox O2 Del Method O2 Flow Rate 98.2 F 84 18 92/65 98 Nasal Cannula 2 02/14/24 03:00 02/14/24 03:00 02/14/24 03:00 02/14/24 03:00 02/14/24 03:00 02/14/24 03:00 02/14/24 03:00 Oxygen Flow Rate (L/min) 2 Oxygen Delivery Method Nasal Cannula Weight: 124 kg Body Mass Index (BMI) 38.1 Intake & Output: Intake and Output for Last 24 Hours 02/12/24 02/13/24 02/14/24 23:59 23:59 23:59 Intake Total 562.5 / 562.5 1000 / 1000 Output Total 450 / 450 Balance 562.5 / 262.5 550 / 550 Lab / Micro Data 02/14/24 10:20 02/13/24 10:30 Labs: Laboratory Results - last 24 hr 02/13/24 10:30: WBC 6.8, RBC 5.36, Hgb 17.0 H, Hct 49.6, MCV 92.5, MCH 31.7, MCHC 34.3, RDW Std Deviation 45.0 H, RDW Coeff of Fariba 13.4, Plt Count 223, MPV 10.6, Immature Gran % (Auto) 0.400, Neut % (Auto) 82.6 H, Lymph % (Auto) 12.2 L, [place] % (Auto) 2.5, Eos % (Auto) 1.9, Baso % (Auto) 0.4, Absolute Neuts (auto) 5.6, Absolute Lymphs (auto) 0.83, Nucleated RBC % 0, PT 16.3 H, INR 1.3, APTT 32.6, Sodium 137, Potassium 4.3, Chloride 102, Carbon Dioxide 27.0, Anion Gap 8, BUN 30 H, Creatinine 1.57 H, Estim Creat Clear Calc 54.23, Est GFR (MDRD) Af Amer 56 L, Est GFR (MDRD) Non-Af 46 L, BUN/Creatinine Ratio 19.1, Glucose 90, Calcium 8.9, Magnesium 2.0, Total Bilirubin 1.60 H, Direct Bilirubin 0.45 H, AST 33, ALT 34, Alkaline Phosphatase 96, Troponin I High Sens 9, Total Protein 8.0, Albumin 4.0, Globulin 4.0, Lipase 109 H 02/13/24 16:08: Procalcitonin 1.86 H 02/13/24 18:26: Troponin I High Sens 22 02/13/24 20:30: Troponin I High Sens 21 02/14/24 01:00: Troponin I High Sens 20 Micro: Microbiology 02/13/24 23:21 Stool Enteric Bacteriology - Final Norovirus 02/13/24 23:21 Stool Clostridioides difficile (PCR) - Final 02/13/24 19:48 Mucosa - Nasopharyngeal Respiratory Panel (PCR) - Final Radiography Diagnostic Testing: Radiology Impression Chest X-Ray 02/13/24 11:19 IMPRESSION: Elevation of the left hemidiaphragm due to gaseous distention of the stomach. Electronically Signed: Augusto Youngblood MD at 12:25 EDT , Physical Exam Narrative GENERAL: cooperative HEENT: Atraumatic; normocephalic EYES; Anicteric, Normal Conjunctiva NECK; supple, normal thyroid, RESPIRATORY: Diminished to auscultation CARDIOVASCULAR: Regular S1 S2, GI: soft, normoactive bowel sounds, : No Renal angle tenderness; EXTREMITIES: No edema, no clubbing, MUSCULOSKELETAL: no muscle wasting NEURO: Awake; no lateralizing signs. SKIN: No Rash PSYCH; Flat affect Assessment & Plan Assessment/Plan (1) Atrial fibrillation with RVR: PLAN: Plan Patient is a 78-year-old gentleman admitted with nausea and palpitations. Was found to be in A-fib with RVR admitted to monitored bed. Hospital stay complicated by diarrhea. 1. Paroxysmal A-fib ? Patient presented with rapid ventricular response. Patient admitted to PCU for continuous telemetry monitoring. Patient is on metoprolol as well as systemic anticoagulation with apixaban which was continued on admission 2. Acute gastroenteritis ? Patient was kept in enteric precautions stool for C. difficile signs 3.Chronic kidney disease stage III ? 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 Patient is on levothyroxine as well as hydrocortisone 5. DVT prophylaxis ? Patient is on apixaban Time spent in the patient's overall evaluation,decision-making process, review of diagnostic data, adjustment of management, discussion with other providers, nursing nursing and ancillary staff involved in patient's care documentation, 45. Minutes Charges/Coding Visit Charges Inpatient E&M: 06448 Subs Hosp L2
[2024-02-14] MEDS: Pantoprazole Sodium 40 MG in 0.9% Normal Saline (100mL MB+) 100 ML 330 MG IV (07:54)
[2024-02-14] MEDS: APIXABAN 5 MG TABLET PO (07:54)
[2024-02-14] MEDS: Hydrocortisone 10 MG Tablet 20 MG PO (07:54)
[2024-02-14] MEDS: Metoprolol Tartrate 25 MG Tablet PO (10:39)
[2024-02-14 10:43] LABS: Absolute Lymphocyte Count 0.69 X10^3/uL (0.83-4.51); Absolute Neutrophil Count 7.9 X10^3/uL (2.0-7.7); Basophil# 0.02 X10^3/uL; Basophil% 0.2 % (0-1); Eosinophil# 0.01 X10^3/uL; Eosinophils% 0.1 % (0-5); Hematocrit 40.7 % (40-54); Lymphocyte # 0.69 X10^3/ul (0.83-4.51); Lymphocyte % 7.5 % (19-41); Mean Corp Hgb Conc 34.4 g/dL (32-36); Mean Corpuscular Volume 93.1 fL (80-94); Mean Platelet Vol. 10.6 fl (6.2-12.0); Monocyte# 0.49 X10^3/uL; Monocyte% 5.3 % (0-10); NRBC Flagged by Analyzer 0 % (0-5); Neutrophil # 7.92 X10^3/uL (2.7-7.7); Neutrophil % 86.6 % (47-70); Platelet Count 177 K/mm3 (150-450); RBC Distribution Width CV 13.3 % (11.6-14.6); RBC Distribution Width SD 45.4 fl (35.1-43.9); Red Blood Count 4.37 M/mm3 (4.6-6.2); White Blood Count 9.2 K/mm3 (4.4-11.0)
[2024-02-14 11:14] LABS: AST(SGOT) 60 U/L (15-37); Alanine Aminotransfer ALT/SGPT 31 U/L (16-61); Albumin, Serum 3.2 g/dL (3.2-5.0); Alkaline Phosphatase 65 U/L (45-117); Anion Gap 6 (5-15); BUN 37 mg/dL (7-18); BUN/Creat Ratio 20.9 RATIO (10-20); Calcium,Total 8.2 mg/dL (8.5-10.1); Chloride 104 mmol/L (98-107); Creatinine, Serum 1.77 mg/dL (0.70-1.30); EST Glomerular Filtration Rate 40 mL/min (>60); Est Glom Filt Rate - Afr Amer 48 mL/min (>60); Globulin 3.3 g/dL (2.2-4.2); Glucose 98 mg/dL (74-106); Potassium 4.3 mmol/L (3.5-5.1); Protein, Total 6.5 g/dL (6.4-8.2); Sodium Level 134 mmol/L (136-145); Thyroid Stim Hormone (TSH) 0.15 uIU/mL (0.358-3.74)
--- NOTE | 2024-02-14 12:35 | CASEMGMT ---
Social Work Living Will and POA for healthcare are both scanned into [employer], Kassandra Felix is listed as healthcare POA. JOHN Blair
--- NOTE | 2024-02-14 14:15 | DS.PCM_ITS ---
Providers Date of Admission: 02/13/24 Date of Discharge: 02/14/24 Primary Care Physician: [facility] Reason For Visit: N/V/D, ? GASTRO, PAF RVR Diagnosis Discharge Diagnosis (1) Atrial fibrillation with RVR: Status: Acute Code(s): I48.91 - Unspecified atrial fibrillation Plan Patient is a 78-year-old gentleman admitted with nausea and palpitations. Was found to be in A-fib with RVR admitted to monitored bed. Hospital stay complicated by diarrhea. 1. Paroxysmal A-fib ? Patient presented with rapid ventricular response. Patient admitted to PCU for continuous telemetry monitoring. Patient is on metoprolol as well as systemic anticoagulation with apixaban which was continued on admission 2. Acute gastroenteritis ? Patient was kept in enteric precautions stool for C. difficile ? Patient stool studies came back positive for norovirus. Patient did request to be discharged home. She was discharged home with no changes made to his home medication regimen 3.Chronic kidney disease stage III ? 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 Patient is on levothyroxine as well as hydrocortisone 5. DVT prophylaxis ? Patient is on apixaban Time spent in the patient's overall evaluation,decision-making process, review of diagnostic data, adjustment of management, discussion with other providers, nursing nursing and ancillary staff involved in patient's care documentation, 35 Minutes Medications at Discharge Home Medications levothyroxine 137 mcg tablet 137 mcg PO DAILY THYROID 05/12/13 calcium carbonate (Oyster Shell Calcium 500) 500 mg PO DAILY SUPPLEMENT 10/26/18 hydrocortisone 5 mg tablet 10 mg PO DAILY 10/26/18 [id number] 300 mcg-K 60 mcg-lycop 600 mcg-lutein 300 mcg tablet (Centrum Silver Men) 1 tab PO DAILY SUPPLEMENT 10/26/18 apixaban 5 mg tablet (Eliquis) 5 mg PO BID blood thinner 08/08/22 cholecalciferol (vitamin D3) 25 mcg (1,000 unit) tablet 25 mcg PO DAILY supplement 08/08/22 hydrocortisone 5 mg tablet 5 mg PO QHS 08/08/22 metoprolol tartrate 25 mg tablet 12.5 mg PO BID blood pressure 08/08/22 vitamin E 268 mg (400 unit) capsule 268 mg PO DAILY supplement 08/08/22 Physical Exam Narrative GENERAL: cooperative HEENT: Atraumatic; normocephalic EYES; Anicteric, Normal Conjunctiva NECK; supple, normal thyroid, RESPIRATORY: Diminished to auscultation CARDIOVASCULAR: Regular S1 S2, GI: soft, normoactive bowel sounds, : No Renal angle tenderness; EXTREMITIES: No edema, no clubbing, MUSCULOSKELETAL: no muscle wasting NEURO: Awake; no lateralizing signs. SKIN: No Rash PSYCH; Flat affect Weight / BMI Weight Weight: 124 kg Body Mass Index (BMI) 38.1 ABG / Lab / Microbiology Data 02/14/24 10:20 02/14/24 10:20 Laboratory: Laboratory Results - last 24 hr 02/13/24 16:08: Procalcitonin 1.86 H 02/13/24 18:26: Troponin I High Sens 02/13/24 20:30: Troponin I High Sens 02/14/24 01:00: Troponin I High Sens 02/14/24 10:20: WBC 9.2, RBC 4.37 L, Hgb 14.0, Hct 40.7, MCV 93.1, MCH 32.0, MCHC 34.4, RDW Std Deviation 45.4 H, RDW Coeff of Fraiba 13.3, Plt Count 177, MPV 10.6, Immature Gran % (Auto) 0.300, Neut % (Auto) 86.6 H, Lymph % (Auto) 7.5 L, [place] % (Auto) 5.3, Eos % (Auto) 0.1, Baso % (Auto) 0.2, Absolute Neuts (auto) 7.9 H, Absolute Lymphs (auto) 0.69 L, Nucleated RBC % 0, Sodium 134 L, Potassium 4.3, Chloride 104, Carbon Dioxide 24.0, Anion Gap 6, BUN 37 H, Creatinine 1.77 H , Estim Creat Clear Calc 47.60, Est GFR (MDRD) Af Amer 48 L, Est GFR (MDRD) Non- Af 40 L, BUN/Creatinine Ratio 20.9 H, Glucose 98, Calcium 8.2 L, Total Bilirubin 1.90 H, AST 60 H, ALT 31, Alkaline Phosphatase 65, Total Protein 6.5, Albumin 3.2, Globulin 3.3, Albumin/Globulin Ratio 1.0, TSH 0.15 L Microbiology: Microbiology 02/13/24 23:21 Stool Enteric Bacteriology - Final Norovirus 02/13/24 23:21 Stool Clostridioides difficile (PCR) - Final 02/13/24 19:48 Mucosa - Nasopharyngeal Respiratory Panel (PCR) - Final Radiography Diagnostic Testing: Radiology Impression Echocardiogram 02/13/24 17:50 Interpretation Summary Normal LV size. Left ventricular systolic function is normal. The left ventricular ejection fraction is 65 %. Mildly dilated aortic root. Mild (1+) eccentric aortic valve insufficiency. Contrast injection was performed. Ordering Physician: Nhi Souza Performed By: Kellie Munguia RDCS and Student D/C Instructions Discharge Diet: No restrictions Discharge Activity: Return to Normal Activity Call your doctor if you observe: Fever of 101 or Higher, Shortness of breath, Fainting spells and Chest pain Meaningful Use Info Meaningful Use Meaningful Use Diagnoses (Choose all that apply): None applicable Ischemic Stroke Statin Dosing Therapy Reference: STATIN DOSE THERAPY REFERENCE: * Patients > 75 years receive moderate or high dose statin therapy. * Patients 75 years or YOUNGER should receive HIGH intensity statin dose unless contraindicated. You will be required to document reason for non-treatment if statin daily dose does not meet guidelines. HIGH DOSE STATIN THERAPY DAILY Atorvastatin > than or = to 40 mg Rosuvastatin > than or = to 20 mg Amlodipine + Atorvastatin > than or = to 2.5/40 mg Ezetimibe + Simvastatin 10/80 mg Simvastatin 80mg Discharge Plan Admission Admit Date/Time: 02/13/24 15:51 Attending Provider: Genaro Rodriguez Primary Care Provider: [facility] Consulting Providers: Nhi Souza Discharge Orders/Prescriptions Prescriptions: Continued levothyroxine 137 MCG tablet 137 mcg PO DAILY hydrocortisone 5 MG tablet 10 mg PO DAILY calcium carbonate [Oyster Shell Calcium 500] 500 MG tablet 500 mg PO DAILY Centrum Silver Men 1 EACH tablet 1 tab PO DAILY hydrocortisone 5 mg Tablet 5 mg PO QHS vitamin E 268 mg (400 unit) Capsule 268 mg PO DAILY metoprolol tartrate 25 mg Tablet 12.5 mg PO BID cholecalciferol (vitamin D3) 25 mcg (1,000 unit) Tablet 25 mcg PO DAILY Eliquis 5 MG tablet 5 mg PO BID Referrals / Follow Up: [facility] [Primary Care Provider[facility] - Disposition Disposition (needs filled in before D/C Order can be placed): Home, Self Care Charges/Coding Visit Charges Inpatient E&M: 18242 Disch Hosp >30min
--- NOTE | 2024-02-14 14:28 | PHA.DC.MR.R ---
Pharmacy [place] Med Reconciliation Pharmacy Service has performed discharge medication reconciliation for this patient. The patient's discharge medication list was reviewed for discrepancies and discrepancies were resolved. Medications at Discharge Home Medications levothyroxine 137 mcg tablet 137 mcg PO DAILY THYROID 05/12/13 calcium carbonate (Oyster Shell Calcium 500) 500 mg PO DAILY SUPPLEMENT 10/26/18 hydrocortisone 5 mg tablet 10 mg PO DAILY 10/26/18 [id number] 300 mcg-K 60 mcg-lycop 600 mcg-lutein 300 mcg tablet (Centrum Silver Men) 1 tab PO DAILY SUPPLEMENT 10/26/18 apixaban 5 mg tablet (Eliquis) 5 mg PO BID blood thinner 08/08/22 cholecalciferol (vitamin D3) 25 mcg (1,000 unit) tablet 25 mcg PO DAILY supplement 08/08/22 hydrocortisone 5 mg tablet 5 mg PO QHS 08/08/22 metoprolol tartrate 25 mg tablet 12.5 mg PO BID blood pressure 08/08/22 vitamin E 268 mg (400 unit) capsule 268 mg PO DAILY supplement 08/08/22
--- NOTE | 2024-02-14 15:31 | CASEMGMT ---
Order for pt DC placed. The DC summary is still in draft mode and the MD told the PCU behavioral psychologist that this is OK to use for now to get the pt discharged. Pt did not qualify for home oxygen per the rn testing. RN CM to pt room at this time. Pt states that he lives with his who will be his ride home from the hospital today. Pt states that he is independent and denies the need for HHC or OP tx of any sort. Pt states that he feels safe discharging home today without any additional needs. Pt denies further questions or concerns.
== END 2024-02-14 14:20 | disposition home or self-care (01) ==
LOC: ED 15:57 → PCU 16:12
PROVIDERS: Admitting Provider Family Medicine; Emergency Provider Emergency Medicine; Visit Provider Internal Medicine
DX: I48.0 Paroxysmal atrial fibrillation (principal); N18.30 Chronic kidney disease, stage 3 unspecified; Z87.891 Personal history of nicotine dependence; Z79.01 Long term (current) use of anticoagulants; E78.5 Hyperlipidemia, unspecified; A08.11 Acute gastroenteropathy due to Norwalk agent; I12.9 Hypertensive chronic kidney disease with stage 1 through stage 4 chronic kidney disease, or unspecified chronic kidney disease; Z79.899 Other long term (current) drug therapy; E03.9 Hypothyroidism, unspecified; Z79.890 Hormone replacement therapy
CPT/HCPCS: 36415; 71045; 80048; 80053; 80076; 83690; 83735; 84145; 84443; 84484; 85025; 85610; 85730; 87493; 87506; 87633; 93005; 93306; 94668; 96361; 96365; 96366; 96375; 96376; 99221; 99283; J7030; J7040; Q9957; A4216; C8929; G0378; J2405